=== PATIENT | male | born 1945 | race Caucasian/White ===

== ENCOUNTER 2020-09-27 07:30 | Day surgery (SDC) | payer MEDICARE, OTHER ==
[~2020-09-27] VITALS: Ht 185.4 cm; Wt 97.7 kg
[~2020-09-27 07:30] MED LIST: ALKA-SELTZER H1 EACH PO; ASCO500 PO; CHOL10002; CRANBERRY250 MG PO; FAMO20 PO; HYDPAM50 PO; LORA10ER PO; MULTI VITAMIN1 EACH PO; PRED10 PO; RANI150 PO; SULTRIDS PO
[2020-09-27] MEDS ORDERED: TUMS500 MG (08:28)
[2020-09-27] MEDS ORDERED: FISH OIL 1,2001 EAC7 (08:29)
[2020-09-27] MEDS ORDERED: OMEP20ER (08:29)
[2020-09-27] MEDS ORDERED: CLON.1 (08:29)
[2020-09-27] MEDS ORDERED: FURO40 (08:29)
[2020-09-27] MEDS ORDERED: KLOR-CON 1010 ME2 (08:29)
[2020-09-27] MEDS ORDERED: YONSA125 MG (08:30)
[2020-09-27] MEDS ORDERED: VENL150ER (08:30)
[2020-09-27] MEDS ORDERED: RAYOS (08:30)
== END 2020-09-27 10:53 | disposition home or self-care (01) ==
LOC: ORSCSDS 07:30
PROVIDERS: Internal Medicine Gastroenterology
PROC: 3E0H8KZ Introduction of Other Diagnostic Substance into Lower GI, Via Natural or Artificial Opening Endoscopic (ICD-10-PCS; principal; 2020-09-27 09:00)
PROC: 0DBH8ZX Excision of Cecum, Via Natural or Artificial Opening Endoscopic, Diagnostic (ICD-10-PCS; principal; 2020-09-27 09:00)
PROC: 0DBK8ZX Excision of Ascending Colon, Via Natural or Artificial Opening Endoscopic, Diagnostic (ICD-10-PCS; principal; 2020-09-27 09:00)
DX: Z12.11 Encounter for screening for malignant neoplasm of colon (principal); Z86.010 Personal history of colon polyps; D12.2 Benign neoplasm of ascending colon; D12.0 Benign neoplasm of cecum; K57.30 Diverticulosis of large intestine without perforation or abscess without bleeding; Z87.891 Personal history of nicotine dependence; G47.33 Obstructive sleep apnea (adult) (pediatric); Z79.899 Other long term (current) drug therapy; Z85.46 Personal history of malignant neoplasm of prostate; Z85.51 Personal history of malignant neoplasm of bladder
CPT/HCPCS: 82947; 88305; J0330; J0461; J2405; J2704; J7120

== ENCOUNTER 2020-11-22 11:40 | Day surgery (SDC) | payer MEDICARE, OTHER ==
[~2020-11-22] VITALS: Ht 185.4 cm; Wt 99.0 kg
[~2020-11-22 11:40] MED LIST changes: +CLON.1; +FISH OIL 1,2001 EAC7; +FURO40; +KLOR-CON 1010 ME2; +OMEP20ER; +RAYOS; +TUMS500 MG; +VENL150ER; +YONSA125 MG
== END 2020-11-22 14:50 | disposition home or self-care (01) ==
LOC: ORSCSDS 11:40
DX: Z12.11 Encounter for screening for malignant neoplasm of colon (principal); D12.0 Benign neoplasm of cecum; D12.3 Benign neoplasm of transverse colon; Z86.010 Personal history of colon polyps; E11.9 Type 2 diabetes mellitus without complications; G47.33 Obstructive sleep apnea (adult) (pediatric); Z79.84 Long term (current) use of oral hypoglycemic drugs; Z79.899 Other long term (current) drug therapy; Z87.891 Personal history of nicotine dependence
CPT/HCPCS: 82947; 88305; J2704; J7120

== ENCOUNTER 2023-03-14 20:00 | Emergency (ER) | payer MEDICARE, OTHER ==
[~2023-03-14] VITALS: Ht 177.8 cm; Wt 104.3 kg
[2023-03-14 20:18] VITALS: BP 140/79
== END 2023-03-14 22:56 | disposition home or self-care (01) ==
LOC: ER 20:00
DX: S61.411A Laceration without foreign body of right hand, initial encounter (principal); W26.8XXA Contact with other sharp object(s), not elsewhere classified, initial encounter; Y99.0 Civilian activity done for income or pay; Z23 Encounter for immunization; Z79.899 Other long term (current) drug therapy; Z88.8 Allergy status to other drugs, medicaments and biological substances; Z79.52 Long term (current) use of systemic steroids
CPT/HCPCS: 12002; 90471; 90714; 90715; 99282-25

== ENCOUNTER 2023-03-28 13:43 | Day surgery (SDC) | payer MEDICARE, OTHER ==
[~2023-03-28] VITALS: Ht 177.8 cm; Wt 105.0 kg
[~2023-03-28 13:43] MED LIST changes: +ALBU90OI; +ASPI325; +ATOR20; +BENADRYL25 MG; +Baclofen20 MG; +CALCIUM 500 MG1 EAC9; +LUPRON DEPOT30 M1; +METF500; -OMEP20ER; +OMEP20ER PO; +OXYC10ER; +PREG150; +PROLIA60 MG/1 ML; +VITAMIN E180 MG; +ZYTIGA500 MG
[2023-03-28] MEDS ORDERED: VENL75ER (14:15)
[2023-03-28] MEDS ORDERED: OXYC10ER (14:23)
[2023-03-28] MEDS ORDERED: TOCO1000 (14:24)
[2023-03-28] MEDS ORDERED: Mobic15 MG (14:24)
[2023-03-28] MEDS ORDERED: ELIGARD22.5 MG (14:25)
--- NOTE | 2023-03-28 16:42 | NUR ---
03/28/23 1642 Carole Moon EMPTIED PATIENTS UROSTOMY BAG DURING PROCEDURE. 200ML REMOVED.
[2023-03-28 17:35] VITALS: BP 105/64
--- NOTE | 2023-03-28 17:37 | NUR ---
03/28/23 1737 Carole Moon IV, DC'Mirela, CATHETER WNL
== END 2023-03-28 17:37 | disposition home or self-care (01) ==
LOC: ORSCSDS 13:43
PROVIDERS: Internal Medicine Gastroenterology
PROC: 0DBL8ZX Excision of Transverse Colon, Via Natural or Artificial Opening Endoscopic, Diagnostic (ICD-10-PCS; principal; 2023-03-28 15:15)
DX: Z12.11 Encounter for screening for malignant neoplasm of colon (principal); Z86.010 Personal history of colon polyps; K63.5 Polyp of colon; G47.33 Obstructive sleep apnea (adult) (pediatric); E11.9 Type 2 diabetes mellitus without complications; Z79.899 Other long term (current) drug therapy; Z79.82 Long term (current) use of aspirin
CPT/HCPCS: 82947; 88305; J0461; J1980; J2001; J2405; J2704; J7120; Q9968

== ENCOUNTER → 2023-12-10 | Outpatient (CLI) | payer MEDICARE, OTHER ==
[~2023-12-10] MED LIST changes: +ELIGARD22.5 MG; +Mobic15 MG; +TOCO1000; +VENL75ER
== END ==
LOC: LAB 09:27 → LAB SHORT 09:27
DX: R31.0 Gross hematuria (principal)
CPT/HCPCS: 87077; 87086; 87186

== ENCOUNTER → 2024-10-20 | Outpatient (CLI) | payer MEDICARE, OTHER ==
[2024-10-20 14:59] LABS: Prostate Specific Antigen 0.013 ng/mL (0.000-4.000)
== END | disposition home or self-care (01) ==
LOC: LAB SHORT 11:14 → LAB 11:14
PROVIDERS: Family Medicine
DX: C61 Malignant neoplasm of prostate (principal)
CPT/HCPCS: 84153

== ENCOUNTER 2024-11-20 20:41 | Observation (INO) | payer MEDICARE, OTHER ==
[~2024-11-20] VITALS: Ht 177.8 cm; Wt 96.7 kg
[~2024-11-20 20:41] MED LIST changes: -ATOR20; +ATOR20 PO; -BENADRYL25 MG; +BENADRYL25 MG PO; -Baclofen20 MG; +Baclofen20 MG PO; -CLON.1; +CLON.1 PO; -FURO40; +FURO40 PO; -KLOR-CON 1010 ME2; -METF500; +METF500 PO; -Mobic15 MG; +Mobic15 MG PO; +POTA10T PO; -PREG150; +PREG150 PO; -RAYOS; +RAYOS PO; -VENL75ER; +VENL75ER PO; -YONSA125 MG; +YONSA125 MG PO
[2024-11-20] MEDS ORDERED: Amaryl2 MG PO (21:02)
[2024-11-20] MEDS ORDERED: Calcium Carbon500 MG PO (21:03)
[2024-11-20] MEDS ORDERED: CRANBERRY215 MG PO (21:04)
[2024-11-20 21:17] LABS: BASOPHILS ABSOLUTE AUTO 0.02 K/mm3 (0.00-0.23); BASOPHILS PERCENT AUTO 0 % (0-2); EOSINOPHILS ABSOLUTE AUTO 0.02 K/mm3 (0.00-0.68); EOSINOPHILS PERCENT AUTO 0 % (0-6); Hematocrit 30.8 % (37.0-53.0); Hemoglobin 10.0 g/dL (13.5-17.5); IMMATURE GRAN ABSOLUTE AUTO 0.05 K/mm3 (0.00-0.10); IMMATURE GRAN PERCENT AUTO 1 % (0-1); LYMPHOCYTES ABSOLUTE AUTO 0.87 K/mm3 (0.84-5.20); LYMPHOCYTES PERCENT AUTO 8 % (21-46); MONOCYTES ABSOLUTE AUTO 0.80 K/mm3 (0.16-1.47); MONOCYTES PERCENT AUTO 8 % (4-13); Mean Corpuscular HGB Conc 32.5 g/dL (31.5-36.5); Mean Corpuscular Volume 92 fL (80-100); NEUTROPHILS ABSOLUTE AUTO 8.87 K/mm3 (1.96-9.15); NEUTROPHILS PERCENT AUTO 83 % (41-73); NRBC ABSOLUTE 0.00 K/mm3 (0.00-0.02); NRBC Auto 0.0 /100 WBC (0.0-0.2); Platelet Count 287 K/mm3 (150-400); RDW Coefficient Variation 16.2 % (11.7-14.2); RDW Standard Deviation 55.3 fL (35.1-46.3)
[2024-11-20 21:25] LABS: Alanine Aminotransfer (ALT/SGP 14.0 U/L (12-78); Albumin, Blood 2.2 g/dL (3.4-5.0); Albumin/Globulin Ratio 0.5 (0.8-1.8); Anion Gap 9.0 mmol/L (3-11); Aspartate Aminotrans (AST/SGOT 42.0 U/L (12-37); Bilirubin, Total 0.7 mg/dL (0.1-1.0); Blood Urea Nitrogen 21.0 mg/dL (8-24); CO2, Blood 24.0 mmol/L (21-32); Calcium, Blood 6.7 mg/dL (8.5-10.1); Chloride, Blood 106.0 mmol/L (98-108); Creatinine, Blood 1.05 mg/dL (0.60-1.20); Globulin, Blood 4.2 g/dL (2.2-4.0); Glucose, Blood 225.0 mg/dL (70-99); Potassium, Blood 3.8 mmol/L (3.5-5.5); Sodium, Blood 135.0 mmol/L (136-145); Total Protein, Blood 6.4 g/dL (6.4-8.2)
[2024-11-20] MEDS ORDERED: DiphenhydrAMINE HCl 50 MG/ML 1ML Vial IV ONE (22:05)
[2024-11-20] MEDS ORDERED: Dexamethasone Sod Phos 10 MG/ML 1ML VIAL IV ONE (22:05)
[2024-11-20] MEDS ORDERED: Pantoprazole Sodium 40 MG Injection IV ONE (23:10)
[2024-11-21] MEDS ORDERED: Ondansetron HCl 2 MG / ML 2ML Vial IV PRN (01:10)
[2024-11-21] MEDS ORDERED: Ketorolac Tromethamine 15mg Vial IV PRN (02:10)
[2024-11-21 03:29] VITALS: BP 116/75
[2024-11-21] MEDS ORDERED: VITAMIN D350 MC3 PO (04:28)
[2024-11-21] MEDS ORDERED: OXYC5 PO (04:37)
--- NOTE | 2024-11-21 05:52 | NUR ---
PT ADMITTED TO ROOM 338 AT 0300 FROM ED WITH A PARTIAL SBO. PT NPO WITH IVF INITIATED. PT DENIES ABDOMINAL PAIN OR NAUSEA. ABD IS SOFTLY DISTENDED WITH HYPOACTIVE BOWEL SOUNDS. PT WITH UROSTOMY TO R ABD DRAINING YELLOW URINE WITH SOME SEDIMENT. PT WITH A HISTORY OF ESBL- CONTACT ISOLATION. SMALL STAGE 2 PRESSURE ULCER NOTED TO COCCYX UPON SKIN CHECK. PT'S STATES THAT THIS IS A HEALING SORE. DR. HUNTER NOTIFED, PICTURE TAKEN AND PLACED IN CHART, AND MEPELEX APPLIED. CALL LIGHT WITHIN REACH.
[2024-11-21 06:14] LABS: BASOPHILS ABSOLUTE AUTO 0.00 K/mm3 (0.00-0.23); BASOPHILS PERCENT AUTO 0 % (0-2); EOSINOPHILS ABSOLUTE AUTO 0.00 K/mm3 (0.00-0.68); EOSINOPHILS PERCENT AUTO 0 % (0-6); Hematocrit 29.1 % (37.0-53.0); Hemoglobin 9.7 g/dL (13.5-17.5); IMMATURE GRAN ABSOLUTE AUTO 0.03 K/mm3 (0.00-0.10); IMMATURE GRAN PERCENT AUTO 0 % (0-1); LYMPHOCYTES ABSOLUTE AUTO 0.22 K/mm3 (0.84-5.20); LYMPHOCYTES PERCENT AUTO 2 % (21-46); MONOCYTES ABSOLUTE AUTO 0.17 K/mm3 (0.16-1.47); MONOCYTES PERCENT AUTO 2 % (4-13); Mean Corpuscular HGB Conc 33.3 g/dL (31.5-36.5); Mean Corpuscular Volume 91 fL (80-100); NEUTROPHILS ABSOLUTE AUTO 9.44 K/mm3 (1.96-9.15); NEUTROPHILS PERCENT AUTO 96 % (41-73); NRBC ABSOLUTE 0.00 K/mm3 (0.00-0.02); NRBC Auto 0.0 /100 WBC (0.0-0.2); Platelet Count 271 K/mm3 (150-400); RDW Coefficient Variation 15.9 % (11.7-14.2); RDW Standard Deviation 53.1 fL (35.1-46.3)
[2024-11-21] MEDS ORDERED: Insulin Regular 100 UNIT/ML 10ML Vial SC SCH ×2 (06:40→11:30)
[2024-11-21 06:58] LABS: Alanine Aminotransfer (ALT/SGP 13.0 U/L (12-78); Albumin, Blood 2.1 g/dL (3.4-5.0); Albumin/Globulin Ratio 0.5 (0.8-1.8); Anion Gap 11.0 mmol/L (3-11); Aspartate Aminotrans (AST/SGOT 33.0 U/L (12-37); Bilirubin, Total 0.6 mg/dL (0.1-1.0); Blood Urea Nitrogen 21.0 mg/dL (8-24); CO2, Blood 20.0 mmol/L (21-32); Calcium, Blood 6.8 mg/dL (8.5-10.1); Chloride, Blood 108.0 mmol/L (98-108); Creatinine, Blood 0.84 mg/dL (0.60-1.20); Globulin, Blood 4.1 g/dL (2.2-4.0); Glucose, Blood 208.0 mg/dL (70-99); Potassium, Blood 3.7 mmol/L (3.5-5.5); Sodium, Blood 135.0 mmol/L (136-145); Total Protein, Blood 6.2 g/dL (6.4-8.2)
[2024-11-21 07:42] VITALS: BP 118/67
[2024-11-21] MEDS ORDERED: Polyethylene Glycol 3350 17 gm PO SCH (09:45)
--- NOTE | 2024-11-21 15:29 | NUR ---
GAVE REPORT TO AGNIESZKA WILLIAMSON. CLAY TO ASSUME CARE OF PT.
[2024-11-21] MEDS ORDERED: OMEGA-3-FISH O1 EAC3 PO (16:22)
[2024-11-21] MEDS ORDERED: Colace100 MG PO (16:22)
[2024-11-21] MEDS ORDERED: MIRALAX17 GM PO (16:23)
--- NOTE | 2024-11-21 16:55 | NUR ---
1530 ASSUMED CARE OF PT; RESTING QUIETLY AWAKE WATCHING TV WITH IN CHAIR AT BS. PT NPO UNTIL DR RIOJAS ABLE TO DISCUSS PLAN OF CARE WITH DR WALKER. DR RIOJAS SOON PUT IN D/C ORDERS. PT TO F/U WITH PCP AND ONCOLOGY SCHEDULED. PT AND DECLINED TO HAVE BOWLE CARE FAXED THEY ALREADY HAVE THEM AT HOME. D/C INSTRUCTIONS REVIEWED WITH PT AND ; VERBALIZED UNDERSTANDING. PT ASSISTED OUT TO FAMILY CAR VIA W/C WITH AT SIDE. PT WEARING ALL BELONGINGS.
== END 2024-11-21 17:54 | disposition home or self-care (01) ==
LOC: ER 20:41 → MEDS 20:42
PROVIDERS: Emergency Medicine; ADMIT Student in an Organized Health Care Education/Training Program
DX: K56.600 Partial intestinal obstruction, unspecified as to cause (principal); K59.00 Constipation, unspecified; C61 Malignant neoplasm of prostate; C67.9 Malignant neoplasm of bladder, unspecified; C78.7 Secondary malignant neoplasm of liver and intrahepatic bile duct; E11.9 Type 2 diabetes mellitus without complications; Z79.1 Long term (current) use of non-steroidal anti-inflammatories (NSAID); Z79.84 Long term (current) use of oral hypoglycemic drugs; Z91.09 Other allergy status, other than to drugs and biological substances
CPT/HCPCS: 36415; 74177; 80053; 82947; 83690; 83735; 85025; 93005; 93010; 96374-59; 96375; 99285-25; G0378; J1100; J1200; J1815; J1885; J2470; J7120; Q9967

== ENCOUNTER 2024-11-23 11:45 | Inpatient (IN) | payer MEDICARE, OTHER ==
[~2024-11-23] VITALS: Ht 177.8 cm; Wt 91.2 kg
[~2024-11-23 11:45] MED LIST changes: +Amaryl2 MG PO; +CRANBERRY215 MG PO; +Calcium Carbon500 MG PO; +Colace100 MG PO; +MIRALAX17 GM PO; +OMEGA-3-FISH O1 EAC3 PO; +OXYC5 PO; +VITAMIN D350 MC3 PO
[2024-11-23] MEDS ORDERED: Piperacillin/Tazobactam Sod 4.5 GM in NS 100 ML IV ONE (12:00)
[2024-11-23] MEDS ORDERED: NS 1,000 ML IV SCH (12:05)
[2024-11-23 12:36] LABS: Alanine Aminotransfer (ALT/SGP 16.0 U/L (12-78); Albumin, Blood 2.0 g/dL (3.4-5.0); Albumin/Globulin Ratio 0.5 (0.8-1.8); Anion Gap 10.0 mmol/L (3-11); Aspartate Aminotrans (AST/SGOT 26.0 U/L (12-37); Bilirubin, Direct 0.1 mg/dL (0.0-0.3); Bilirubin, Indirect 0.2 mg/dL (0.1-0.7); Bilirubin, Total 0.3 mg/dL (0.1-1.0); Blood Urea Nitrogen 30.0 mg/dL (8-24); CO2, Blood 19.0 mmol/L (21-32); Calcium, Blood 6.4 mg/dL (8.5-10.1); Chloride, Blood 108.0 mmol/L (98-108); Creatinine, Blood 1.21 mg/dL (0.60-1.20); Globulin, Blood 3.9 g/dL (2.2-4.0); Glucose, Blood 140.0 mg/dL (70-99); Magnesium, Blood 1.6 mg/dL (1.6-2.4); Potassium, Blood 4.0 mmol/L (3.5-5.5); Sodium, Blood 133.0 mmol/L (136-145); Total Protein, Blood 5.9 g/dL (6.4-8.2)
[2024-11-23 12:50] LABS: Prothrombin Time Results 12.4 Sec (9.7-11.5)
[2024-11-23 12:53] LABS: Phosphorus, Blood 0.9 mg/dL (2.5-4.9)
[2024-11-23 12:55] LABS: Hematocrit 29.5 % (37.0-53.0); Hemoglobin 9.7 g/dL (13.5-17.5); Mean Corpuscular HGB Conc 32.9 g/dL (31.5-36.5); Mean Corpuscular Volume 89 fL (80-100); NRBC ABSOLUTE 0.00 K/mm3 (0.00-0.02); NRBC Auto 0.0 /100 WBC (0.0-0.2); Platelet Count 309 K/mm3 (150-400); RDW Coefficient Variation 15.9 % (11.7-14.2); RDW Standard Deviation 52.6 fL (35.1-46.3)
[2024-11-23] MEDS ORDERED: DiphenhydrAMINE HCl 50 MG/ML 1ML Vial IV ONE (13:10)
[2024-11-23 13:29] LABS: BAND PERCENT MAN 41 % (0-8); BASOPHILS ABSOLUTE MAN 0.00 K/mm3 (0.00-0.23); BASOPHILS PERCENT MAN 0 % (0-2); EOSINOPHILS ABSOLUTE MAN 0.06 K/mm3 (0.00-0.68); EOSINOPHILS PERCENT MAN 2 % (0-6); LYMPHOCYTES ABSOLUTE MAN 0.21 K/mm3 (0.84-5.20); LYMPHOCYTES PERCENT MAN 7 % (21-46); METAMYELOCYTE ABSOLUTE MAN 0.09 K/mm3 (0.00-0.00); METAMYELOCYTE PERCENT MAN 3 % (0-0); MONOCYTES ABSOLUTE MAN 0.03 K/mm3 (0.16-1.47); MONOCYTES PERCENT MAN 1 % (4-13); NEUTROPHILS ABSOLUTE MAN 2.72 K/mm3 (1.96-9.15); SEG NEUTROPHILS PERCENT MAN 46 % (41-73)
[2024-11-23] MEDS ORDERED: SODIUM PHOSPHATE IV SCH (13:50)
[2024-11-23] MEDS ORDERED: Ketorolac Tromethamine 15mg Vial IV ONE (14:15)
[2024-11-23 14:17] LABS: pH Blood Venous 7.25 (7.34-7.37)
[2024-11-23] MEDS ORDERED: Vancomycin (Pharmacy Consult) IV SCH (15:40)
[2024-11-23] MEDS ORDERED: Morphine Sulfate 4 MG/1 ML Injection IV PRN (15:45)
[2024-11-23] MEDS ORDERED: Ondansetron HCl 2 MG / ML 2ML Vial IV PRN (15:50)
[2024-11-23 16:06] LABS: pH Blood Venous 7.33 (7.34-7.37)
[2024-11-23 17:30] LABS: Anion Gap 11.0 mmol/L (3-11); Blood Urea Nitrogen 34.0 mg/dL (8-24); CO2, Blood 18.0 mmol/L (21-32); Calcium, Blood 6.9 mg/dL (8.5-10.1); Chloride, Blood 109.0 mmol/L (98-108); Creatinine, Blood 1.44 mg/dL (0.60-1.20); Glucose, Blood 132.0 mg/dL (70-99); Potassium, Blood 3.5 mmol/L (3.5-5.5); Sodium, Blood 134.0 mmol/L (136-145)
[2024-11-23] MEDS ORDERED: Piperacillin/Tazobactam Sod 4.5 GM in NS 100 ML IV SCH (18:00)
[2024-11-23] MEDS ORDERED: Insulin Human Lispro 100 Units/ML 3ML Syringe SC SCH (18:00)
[2024-11-23 18:20] VITALS: BP 105/62
[2024-11-23] MEDS ORDERED: Sodium Phosphate 15 MM in Dextrose 5% 500 ML IV ONE (19:00)
--- NOTE | 2024-11-23 19:29 | NUR ---
Admit note. Pt admitted from the ED to PCU1. Pt and family were oriented to the room and call light system. Pt arrived on BiPAP. Pt remains NPO for bowel rest/ respiratory effort. CBG checks Q6 hour Nasal swabs sent for PCR and MRSA, Sputum sample need to be collected. Urostomy remains patent. Clear yellow urine. Pt is able to make needs known. Call light is within reach.
[2024-11-23 20:30] VITALS: BP 101/61
[2024-11-23 21:00] VITALS: BP 100/65
[2024-11-23] MEDS ORDERED: Lactobacil 2-S.Thermo-Bifido 1 1 Cap PO SCH (21:00)
[2024-11-23 22:00] VITALS: BP 107/81
[2024-11-23 23:00] VITALS: BP 110/66
[2024-11-23 23:37] LABS: Influenza A/2009-H1 Not Detected (NOT DETECT); SARS-Cov-2 (COVID-19), BioFire Not Detected (NOT DETECT)
[2024-11-24] VITALS (8 sets, daily range): BP systolic 92–117; BP diastolic 62–74
--- NOTE | 2024-11-24 01:45 | NUR ---
HOME HERE TO RECEIVING CLERK PT. ALL BELONGINGS AND NECESSARY PAPERWORK WITH PT AND HOME PERSONNEL AT TIME OF DISCHARGE.
[2024-11-24 04:44] LABS: Hematocrit 24.6 % (37.0-53.0); Hemoglobin 8.3 g/dL (13.5-17.5); Mean Corpuscular HGB Conc 33.7 g/dL (31.5-36.5); Mean Corpuscular Volume 89 fL (80-100); NRBC ABSOLUTE 0.00 K/mm3 (0.00-0.02); NRBC Auto 0.0 /100 WBC (0.0-0.2); Platelet Count 270 K/mm3 (150-400); RDW Coefficient Variation 16.3 % (11.7-14.2); RDW Standard Deviation 53.4 fL (35.1-46.3)
[2024-11-24 05:22] LABS: Alanine Aminotransfer (ALT/SGP 12 U/L (12-78); Albumin, Blood 1.7 g/dL (3.4-5.0); Albumin/Globulin Ratio 0.4 (0.8-1.8); Anion Gap 12 mmol/L (3-11); Aspartate Aminotrans (AST/SGOT 21 U/L (12-37); Bilirubin, Total 0.3 mg/dL (0.1-1.0); Blood Urea Nitrogen 30 mg/dL (8-24); CO2, Blood 20 mmol/L (21-32); Calcium, Blood 5.9 mg/dL (8.5-10.1); Chloride, Blood 108 mmol/L (98-108); Creatinine, Blood 1.31 mg/dL (0.60-1.20); Globulin, Blood 3.8 g/dL (2.2-4.0); Glucose, Blood 240 mg/dL (70-99); Potassium, Blood 4.0 mmol/L (3.5-5.5); Sodium, Blood 136 mmol/L (136-145); Total Protein, Blood 5.5 g/dL (6.4-8.2); Vancomycin, Random 14.6 ug/mL
[2024-11-24 05:33] LABS: Phosphorus, Blood 3.2 mg/dL (2.5-4.9)
[2024-11-24 05:38] LABS: BAND PERCENT MAN 41 % (0-8); BASOPHILS ABSOLUTE MAN 0.06 K/mm3 (0.00-0.23); BASOPHILS PERCENT MAN 1 % (0-2); EOSINOPHILS ABSOLUTE MAN 0.00 K/mm3 (0.00-0.68); EOSINOPHILS PERCENT MAN 0 % (0-6); LYMPHOCYTES ABSOLUTE MAN 0.13 K/mm3 (0.84-5.20); LYMPHOCYTES PERCENT MAN 2 % (21-46); MONOCYTES ABSOLUTE MAN 0.41 K/mm3 (0.16-1.47); MONOCYTES PERCENT MAN 6 % (4-13); MYELOCYTE ABSOLUTE MAN 0.13 K/mm3 (0.00-0.00); MYELOCYTE PERCENT MAN 2 % (0-0); NEUTROPHILS ABSOLUTE MAN 6.11 K/mm3 (1.96-9.15); SEG NEUTROPHILS PERCENT MAN 48 % (41-73)
--- NOTE | 2024-11-24 06:23 | NUR ---
PT STABLE THROUGHOUT SHIFT. PT ON BIPAP THROUGHOUT NIGHT. PT NO LONGER SOMNOLENT AND IS AWAKE SPONTANEOUSLY THIS AM. PT ABLE TO MAKE NEEDS KNOWN AND USES CALL LIGHT APPROPRIATELY. PT CONTINUES TO HAVE SOFT BP AND IS ASYMPTOMATIC. PT TOLERATING IV FLUIDS AND IV ABX WELL. PT REMAINS NPO PER ORDER AT THIS TIME. PT OTHER VITAL SIGNS HAVE BEEN WNL. PT DID HAVE ONE LOOSE INCONTINENT BM. UROSTOMY CONTINUES TO DRAIN WELL AND PT HAS HAD GOOD URINARY OUTPUT.
[2024-11-24] MEDS ORDERED: Potassium Chloride 10 Meq Tablet SA PO SCH (09:00)
[2024-11-24] MEDS ORDERED: Enoxaparin 40 MG/0.4 ML SYR SC SCH (09:00)
[2024-11-24 10:31] LABS: Acinetobacter baumannii DNA Not Detected copy/mL (NOT DETECT); CTX-M Resistance Gene Not Detected; Enterobacter cloacae DNA Not Detected copy/mL (NOT DETECT); Escherichia coli DNA Detected Bin >=10^7 copy/mL (NOT DETECT); Haemophilus influenzae DNA Not Detected copy/mL (NOT DETECT); IMP Resistance Gene Not Detected; KPC Resistance Gene Not Detected; Klebsiella aerogenes DNA Not Detected copy/mL (NOT DETECT); Klebsiella oxytoca DNA Not Detected copy/mL (NOT DETECT); Klebsiella pneumoniae DNA Not Detected copy/mL (NOT DETECT); Moraxella catarrhalis DNA Not Detected copy/mL (NOT DETECT); Proteus sp DNA Not Detected copy/mL (NOT DETECT); Pseudomonas aeruginosa DNA Not Detected copy/mL (NOT DETECT); Serratia marcescens DNA Not Detected copy/mL (NOT DETECT); Staphylococcus aureus DNA Detected Bin 10^4 copy/mL (NOT DETECT); Streptococcus agalactiae DNA Not Detected copy/mL (NOT DETECT); Streptococcus pneumoniae DNA Not Detected copy/mL (NOT DETECT); Streptococcus pyogenes DNA Not Detected copy/mL (NOT DETECT)
[2024-11-24 10:32] LABS: Chlamydia pneumonia Not Detected (NOT DETECT); Human Coronavirus RNA Not Detected (NOT DETECT); Human Metapneumovirus RNA Not Detected (NOT DETECT); Influenza virus A RNA Not Detected (NOT DETECT); Influenza virus B RNA Not Detected (NOT DETECT); NDM Resistance Gene Not Detected; OXA-48-like Resistance Gene Not Detected; Respiratory syncytial Vir RNA Not Detected (NOT DETECT); Rhinovirus+Enterovirus RNA Not Detected (NOT DETECT); VIM Resistance Gene Not Detected; mecA/C and MREJ Resist Gene Not Detected
[2024-11-24] MEDS ORDERED: Polyethylene Glycol 3350 17 gm PO PRN (10:35)
[2024-11-24] MEDS ORDERED: Multivitamins 1 Tab PO SCH (11:00)
[2024-11-24] MEDS ORDERED: ABIRATERONE PO SCH (13:00)
--- NOTE | 2024-11-24 14:57 | NUR ---
THIS RN CALLED DR. RIOJAS WITH SPUTUM CULTURE RESULTS. NO NEW ORDERS.
[2024-11-24] MEDS ORDERED: Insulin Human Lispro 100 Units/ML 3ML Syringe SC SCH (16:30)
--- NOTE | 2024-11-24 17:33 | NUR ---
PALLIATIVE CARE VISIT: CALLED HEMAL AND SET UP A GOC MEETING AT 0900 ON 11/25/24. NOTIFIED PRIMARY RN OF MEETING.
--- NOTE | 2024-11-24 17:36 | NUR ---
END OF SHIFT SUMMARY THE PT IS A&OX4, 1P SBA, AND MAKES HIS NEEDS KNOWN. HAS BEEN AT BEDSIDE AND UPDATED ON CARE. AT START OF THE SHIFT THE PT WAS ON THE BIPAP, BUT WAS BEING SWITCHED TO 3LNC. HE HAS SINCE BEEN SWITCHED TO RA W/O ANY SOB, AND SP02 >93%. SPUTUM SAMPLE COLLECTED AND SENT TO LAB. PT PLACED ON DROPLET PERCAUTIONS D/T RESULTS. ON TELE HE WAS SR, BUT THE TELE HAS SINCE BEEN D/C'D. BP HAS BEEN STABLE T/O THE DAY. DR. RIOJAS DID D/C THE PT'S CLONODINE THIS MORNING. THE MEDICATION REC WAS RECONCILLED AND DR. RIOJAS MADE AWARE. HE HAS A UROSTOMY THAT IS DRAINING VIA GRAVITY INTO A SUCTION CANISTER. NO BOWEL MOVEMENT THIS SHIFT. SPEECH THERAPY AND PHYSICAL THERAPY WORKED WITH THE PT TODAY. NO ACUTE EVENTS. THE PT IS MEDICAL STATUS AND IS TRANSFERING TO [facility].
[2024-11-25] MEDS ORDERED: NS 250 ML IV PRN (01:50)
[2024-11-25 02:40] VITALS: BP 121/74
[2024-11-25] MEDS ORDERED: Prochlorperazine Edisylate 10 mg Vial IV PRN (03:20)
--- NOTE | 2024-11-25 05:00 | NUR ---
SHIFT SUMMARY PATIENT A/O X3 THROUGHOUT SHIFT, VITAL SIGNS REMAINED STABLE. AT APPROX [address] HUNTER TO REPORT INCREASE IN ABDOMINAL DISTENTION AND NAUSEA, ALSO REPORTED THAT PATIENT STATES THAT HE HAS NOT HAD A BOWEL MOVEMENT SINCE BEFORE BEING ADMITTED. DR HUNTER ORDERED COMPAZINE AND THIS RN GAVE MEDICATION PER EMAR. MIRALAX GIVEN PRN. PATIENT RESTING. OXYGEN SATURATION ABOVE 90% ON ROOM AIR. UROSTOMY DRAINING CLEAR YELLOW URINE INTO SUCTION CONTAINER. WILL CONTINUE TO MONITOR AND REPORT TO ONCOMING RN.
[2024-11-25 06:25] VITALS: BP 123/79
[2024-11-25 06:26] LABS: Hematocrit 32.2 % (37.0-53.0); Hemoglobin 10.7 g/dL (13.5-17.5); Mean Corpuscular HGB Conc 33.2 g/dL (31.5-36.5); Mean Corpuscular Volume 89 fL (80-100); NRBC ABSOLUTE 0.02 K/mm3 (0.00-0.02); NRBC Auto 0.2 /100 WBC (0.0-0.2); Platelet Count 382 K/mm3 (150-400); RDW Coefficient Variation 16.4 % (11.7-14.2); RDW Standard Deviation 54.0 fL (35.1-46.3)
--- NOTE | 2024-11-25 06:26 | NUR ---
CALL PLACED TO DR HUNTER TO REPORT CONTINUED DISCOMFORT WITH ABDOMINAL DISTENTION, AND PULSE FLUNCTUATING FROM 40'S-90'S. PROVIDER PLACED ORDERS FOR TELE, ABDOMINAL CT, AND LABS. THIS RN NOTIFIED BOTH CHARGE NURSES. TELE PLACED ON PATIENT. BACK UP WORKER REPORTS BIGEMINY AT 92. VITAL SIGNS OBTAINED AND PROVIDER NOTIFIED WITH TELE REPORT. NO CHEST PAIN REPORTED. WILL CONTINUE TO MONITOR.
[2024-11-25 06:41] LABS: Anion Gap 12.0 mmol/L (3-11); Blood Urea Nitrogen 29.0 mg/dL (8-24); CO2, Blood 21.0 mmol/L (21-32); Calcium, Blood 6.5 mg/dL (8.5-10.1); Chloride, Blood 106.0 mmol/L (98-108); Creatinine, Blood 1.18 mg/dL (0.60-1.20); Glucose, Blood 165.0 mg/dL (70-99); Magnesium, Blood 1.9 mg/dL (1.6-2.4); Potassium, Blood 3.1 mmol/L (3.5-5.5); Sodium, Blood 136.0 mmol/L (136-145)
[2024-11-25 07:47] VITALS: BP 118/78
[2024-11-25] MEDS ORDERED: Vitamin E 400 Intn'l Units Cap PO SCH (09:00)
[2024-11-25] MEDS ORDERED: Misc. Tablet PO SCH (09:00)
[2024-11-25] MEDS ORDERED: Cranberry Extract 250MG W/30 MG Vitamin C Tab PO SCH (09:00)
[2024-11-25] MEDS ORDERED: Cholecalciferol 1000 Unit Tablet (=25MCG) PO SCH (09:00)
[2024-11-25] MEDS ORDERED: ABIRATERONE PO SCH (09:00)
[2024-11-25] MEDS ORDERED: Phenol/Sodium Phenolate Oral Spray 180 ML MM PRN (09:45)
--- NOTE | 2024-11-25 11:35 | NUR ---
PALLIATIVE CARE VISIT: MET WITH PT AND HEMAL IN THE ROOM TO DISCUSS GOC THIS MORNING AT 9 AM. STATES UNTIL THEY MEET WITH THE ONCOLOGIST TO FIND OUT WHAT TREATMENT OPTIONS ARE AVAILABLE TO TREAT THE CANCER, THEY DO NOT WANT TO MAKE ANY DECISIONS YET. HEMAL REPORTS JULIOCESAR WAS REFERRED TO DR. MAYO FOR THE LIVER LESIONS BUT HE IS ON VACATION UNTIL 12/01. THEY ARE AGREEABLE TO MEETING WITH DR. ZAVALETA TO DISCUSS TREATMENT OPTIONS. SPOKE TO DR. RIOJAS AND HE IS AGREEABLE TO PLACING CONSULT FOR DR. ZAVALETA TO COME IN AND CONSULT WITH PT. ALSO DISCUSSED SYMPTOM MANAGEMENT WITH PT. SURGEON ARRIVED DURING THIS MEETING. PT C/O 09/30 ABD PAIN. ABD IS SEVERELY DISTENDED. PT STATES HE ATE LUNCH AND DINNER YESTERDAY. HE DID EAT BREAKFAST. PT REPORTS BURPING BUT HAS NOT PASSED GAS. PLAN IS TO PLACE NG TUBE AND MAKE NPO AT THIS TIME. SURGEON TO PLACE ORDERS.
[2024-11-25 15:54] VITALS: BP 134/67
--- NOTE | 2024-11-25 17:06 | NUR ---
ASSUMPTION OF CARE: THIS RN ASSUMED CARE OF PATIENT FROM AGNIESZKA JANSEN AFTER TRANSFER FROM ROOM 350. AWAKE DURING TIME OF TRANSFER. BREATHING EVEN AND UNLABORED c 2LPM/NC. NG TUBE TO SUCTION. REFRIGERATING MACHINE OPERATOR NOTIFIED THAT PT TRANSFERRING; REVIEW OF STRIP SHOWS BIGEMINY c P-WAVE DIFFICULT TO IDENTIFY AND APPEARED TO BE BORDERLINE A-FIB c HR IN 90s. BED IN LOWEST POSITION. CALL LIGHT WITHIN REACH. ACUTE NEEDS MET. AT BEDSIDE.
--- NOTE | 2024-11-25 17:24 | NUR ---
CALL TO DR RIOJAS: GARY TO HOLD P.O. MEDICATIONS TONIGHT. GARY TO CHANGE AC/HS TO Q6H D/T PT NPO STATUS. NOTIFIED OF CHANGE IN HEART RHYTHM AND RATE; HE WILL PLACE ORDER FOR IV PUSH METOPROLOL.
--- NOTE | 2024-11-25 17:28 | NUR ---
TRANSFER OF CARE CLIENT AOX3. MEDICATION COMPLIANT. REMAINS ON IV ABT. UROSOTMY IN PLACE AND DRAINING TO GRAVITY. CLIENT'S WILL BRING IN SUPPLIES TO CHANGE LOOSE ATTACHMENT POINT TOMORROW. NG TUBE PLACED TO DECOMPRESS ABDOMEN. A TOTAL OF 2800ML HAD DRAINED THUS FAR. CLIENT IS ON TELE. AT THE BEGINNING OF THE SHIFT, WAS SHOWING BIGEMINY. PRIOR TO TRANSFERRING CLIENT, CALLED INTERNET RETAILER AND THE STRIP WAS SHOWING SINUS TACH @ 105, WITH FREQUENT PVC'S AND BBB. CLIENT REMAINS ON DROPLET PRECAUTIONS FOR STAPH AND E. COLI IN SPUTUM.
[2024-11-25] MEDS ORDERED: MEDROL PO (17:37)
--- NOTE | 2024-11-25 17:53 | NUR ---
CALL FROM BUSINESS INSURANCE AGENT: PT HAD 9-BEAT RUN OF V-TACH. DR RIOJAS NOTIFIED: T.O. FOR STAT MAG LEVEL AND NOTIFY HIM OF RESULT.
[2024-11-25] MEDS ORDERED: Insulin Human Lispro 100 Units/ML 3ML Syringe SC SCH (18:00)
--- NOTE | 2024-11-25 19:37 | NUR ---
END OF SHIFT SUMMARY: A&Ox4. PLEASANT AND COOPERATIVE WITH CARE. CALLS APPROPRIATELY AND IS ABLE TO ADVOCATE NEEDS EFFECTIVELY. UROSTOMY DRAINING TO GRAVITY. NGT TO SUCTION. NPO. GLUCOSE CHECKS CHANGED TO Q6H D/T NPO STATUS. HAS NOT AMBULATED TODAY. NO C/O PAIN OR DISCOMFORT. DR PRICE TO BEDSIDE FOR CONSULT. NO CHANGES AT THIS TIME. TELE HAS BEEN IRRATIC WHOING BIGEM, TRIGEM AND A-FIB c HR < 100. ORDER FOR STAT MAG LEVEL. RESULTS PENDING. AT BEDSIDE. BED IN LOWEST POSITION, CALL LIGHT WITHIN REACH, ALL NEEDS MET. REPORT TO ONCOMING NURSE.
[2024-11-25 20:05] VITALS: BP 118/67
[2024-11-26] MEDS ORDERED: NS 100 ML IV ONE (02:07)
[2024-11-26] MEDS ORDERED: Morphine Sulfate 4 MG/1 ML Injection IV PRN (02:45)
[2024-11-26] MEDS ORDERED: DiphenhydrAMINE HCl 50 MG/ML 1ML Vial IV ONE (02:45)
--- NOTE | 2024-11-26 02:45 | NUR ---
Benadryl IV Now & Morphine orders Patient c/o pain in legs and difficulty sleeping. Requesting pain meds and sleep aid. Takes benadryl at home nightly for sleep, however, patient strictly NPO at this time. Called Dr. Baker and obtained a T.O. to to give 25mg IV benadryl once and change current morphine order to 2-4mg IV morphine q4h prn for severe pain.
[2024-11-26 02:51] VITALS: BP 101/86
--- NOTE | 2024-11-26 05:25 | NUR ---
Shift Summary AOx4. Pleasant. Cooperative. Patient receiving LR @ 100mls/hour, his second of three bags. NG tube output is green bilious with some coffee ground material. Urostomy draining yellow urine to gravity and is patent. Medicated for leg pain and sleep, both were effective. Calling for needs appropriately. Bed in lowest position, call light in reach.
[2024-11-26 07:36] LABS: Creatinine, Blood 1.23 mg/dL (0.60-1.20); Vancomycin, Trough 17.9 ug/mL (5.0-10.0)
[2024-11-26 07:43] LABS: Anion Gap 9.0 mmol/L (3-11); Blood Urea Nitrogen 30.0 mg/dL (8-24); CO2, Blood 25.0 mmol/L (21-32); Calcium, Blood 6.3 mg/dL (8.5-10.1); Chloride, Blood 109.0 mmol/L (98-108); Creatinine, Blood 1.24 mg/dL (0.60-1.20); Glucose, Blood 166.0 mg/dL (70-99); Potassium, Blood 2.9 mmol/L (3.5-5.5); Sodium, Blood 140.0 mmol/L (136-145)
[2024-11-26] MEDS ORDERED: Potassium Chl 20MEQ/Water100ML 100 ML IV SCH (08:00)
[2024-11-26 08:16] VITALS: BP 127/66
[2024-11-26] MEDS ORDERED: Piperacillin/Tazobactam Sod 4.5 GM in NS 100 ML IV SCH (10:00)
[2024-11-26 11:34] VITALS: BP 126/68
[2024-11-26] MEDS ORDERED: Calcium Chloride 10% 2,000 MG in NS 100 ML IV ONE (16:25)
[2024-11-26 16:37] VITALS: BP 128/58
--- NOTE | 2024-11-26 18:06 | NUR ---
End of shift summary: Patient is alert and oriented x3; pleasant and cooperative with care. Patient denies SOB, CP, N/V/D this shift and NG tube in place draining dark fluid per suction. Patient with complaint of pain and medicated per EMAR; all other PO medications held per NPO status. Patient with urostomy change today and tolerated well. No acute changes this shift. Patient utilizing call light appropriately; call light within reach, bed in lowest postion. Will continue to monitor until next shift nurse arrives and report is given.
[2024-11-26 19:29] VITALS: BP 120/73
[2024-11-26 23:31] VITALS: BP 135/71
[2024-11-27 03:33] VITALS: BP 131/69
--- NOTE | 2024-11-27 04:49 | NUR ---
PT A&O X4, VS WNL, CONTINUES TO BE NPO FOR SBO, NG IN LT NARE TO LIS, UROSOMY TO CANISTER WITH GOOD OUTPUT. PAIN IN ABDOMEN TX'D WITH MORPHINE IVP X1 THIS SHIFT. CBG WNL NO COVERAGE NEEDED. O2 @ 1.5L/NC. IVPB POTASIUM REPLACEMENT ADMINISTERED, AND CONTINUES TO BE ON IVABX. PLAN TO D/C TO HOME WITH HH.
[2024-11-27 06:03] LABS: Anion Gap 12.0 mmol/L (3-11); Blood Urea Nitrogen 22.0 mg/dL (8-24); CO2, Blood 23.0 mmol/L (21-32); Calcium, Blood 7.5 mg/dL (8.5-10.1); Chloride, Blood 114.0 mmol/L (98-108); Creatinine, Blood 1.06 mg/dL (0.60-1.20); Glucose, Blood 154.0 mg/dL (70-99); Magnesium, Blood 2.2 mg/dL (1.6-2.4); Potassium, Blood 3.9 mmol/L (3.5-5.5); Sodium, Blood 145.0 mmol/L (136-145)
[2024-11-27 08:28] VITALS: BP 149/69
[2024-11-27 12:04] VITALS: BP 153/87
[2024-11-27 16:16] VITALS: BP 137/83
--- NOTE | 2024-11-27 18:16 | NUR ---
SHIFT SUMMARY: A&OX4 THROUGHOUT SHIFT. PLEASANT WITH CARE. PT REMAINS NPO AT THIS TIME. DR PRICE CONTACTED THIS SHIFT BY BREAK NURSE ABOUT POTENTIAL SMALL BOWEL FOLLOW THROUGH. PLAN IS FOR DR PRICE TO CONTACT STAFF ABOUT PLAN FOR PROCEDURE DUE TO ALLERGY TO IODINE AND TO PLAN FOR TOMORROW. PT SEEN BY PHYSICAL THERAPY TODAY AND IS REPORRTED TO BE A MINIMAL ASSIST. PT DENIES CHEST PAIN AND/OR DISCOMFT. 02 SATS >90% ON ROOM AIR. LYING IN BED AT THIS TIME. LOCKED IN THE LOWEST POSITION.
[2024-11-27 20:41] VITALS: BP 117/74
[2024-11-27 20:43] VITALS: BP 117/74
[2024-11-28] VITALS (8 sets, daily range): BP systolic 122–142; BP diastolic 68–90
--- NOTE | 2024-11-28 05:09 | NUR ---
FLOORWALKER SUMMARY PT A/OX4 WITH SOME FORGETFULNESS. PT ALLOWED ICE CHIPS T/O THE NIGHT BUT OTHERWISE NPO. MEDS HELD PER NPO ORDER AND SBO. PT HAS HAD LITTLE OUTPUT FROM NG TUBE THIS SIFT. PT IS TOLERATING ICE CHIPS AND DENIES ABD PAIN. PT DOES ENDORSE PAIN TO BLE. PT REPORTS N & T HX WITH FREQUENT SHARP/SHOOTING PAINS. NOTED PT'S LE TO HAVE MOTTLED APPEARANCE AND CAP REFILL SLUGISH. PT PEDAL PULSES PALPABLE. (CHARGE NURSE OBSERVED PT PER THIS RN REQUEST). LIMBS ARE COOL TO TOUCH. PT STATES CIRCULATION AND NUMBNESS HAS BEEN ONGOING FOR YEARS. SCD'S APPLIED. PT HAS UROSTOMY DRAINING TO GRAVITY. NG TUBE IS SET TO LOW CONTINUOUS SUCTION PER ORDER. PT ON TELE W/O EVENTS T/O THE SHIFT. PT IS ABLE TO MAKE NEEDS KNOWN. CALL LIGHT ACCESSIBLE. PT IS MODERATE TO HEAVY CARE. ASSISTED PT WITH REPOSITIONING AT LEAST EVERY TWO HOURS. REGULAR ROUNDING COMPLETE T/O THE SHIFT. BLOOD SUGARS OBTAINED Q6 AND INSULIN ADMINISTERED PER MAR/SLIDING SCALE. IV ABOX GIVEN PER MAR. REENFORCED EDUCATION ON PLAN FOR SMALL BOWEL FOLLOW THROUGH AND NEED FOR PT TO BE NPO. CARE WILL CONTINUE UNTIL REPORT GIVEN TO ONCOMING NURSE.
[2024-11-28 06:14] LABS: Anion Gap 13.0 mmol/L (3-11); Blood Urea Nitrogen 18.0 mg/dL (8-24); CO2, Blood 19.0 mmol/L (21-32); Calcium, Blood 7.1 mg/dL (8.5-10.1); Chloride, Blood 115.0 mmol/L (98-108); Creatinine, Blood 0.95 mg/dL (0.60-1.20); Glucose, Blood 140.0 mg/dL (70-99); Magnesium, Blood 2.0 mg/dL (1.6-2.4); Potassium, Blood 3.4 mmol/L (3.5-5.5); Sodium, Blood 144.0 mmol/L (136-145)
--- NOTE | 2024-11-28 06:31 | NUR ---
INFECTION CONTROLLED INFORMED ISOLATION NOT NEEDED PT POS FOR MSSA IN NARES. NOT MRSA--NO ISO NEEDED.
[2024-11-28] MEDS ORDERED: DiphenhydrAMINE HCl 50 MG/ML 1ML Vial IV PRN (11:10)
--- NOTE | 2024-11-28 19:33 | NUR ---
SHIFT SUMMARY CLIENT AOX3. MEDICATION COMPLIANT. RECEIVED 1 BAG OF IV POTASSIUM. DUE TO LENGTH OF RUN TIME ON THE POTASSIUM AND IMAGING STUDIES. CLIENT MISSED 10:00 DOSE OF ZOSYN. CLIENT SEEN DR PRICE TO DISCUSS POSSIBILITY OF SURGICAL INTERVENTION OF BOWEL OBSTRUCTION, IF IMAGING STUDY SHOWS WARRENTED.BED IS IN LOW POSITION AND CALLLIGHT IS WITHIN REACH
[2024-11-29] VITALS (28 sets, daily range): BP systolic 107–136; BP diastolic 59–87
[2024-11-29 06:07] LABS: Anion Gap 13.0 mmol/L (3-11); Blood Urea Nitrogen 27.0 mg/dL (8-24); CO2, Blood 20.0 mmol/L (21-32); Calcium, Blood 7.2 mg/dL (8.5-10.1); Chloride, Blood 123.0 mmol/L (98-108); Creatinine, Blood 1.18 mg/dL (0.60-1.20); Glucose, Blood 160.0 mg/dL (70-99); Potassium, Blood 3.6 mmol/L (3.5-5.5); Sodium, Blood 152.0 mmol/L (136-145)
--- NOTE | 2024-11-29 06:30 | NUR ---
PT A&Ox3-4 AND PLEASANT. NG TUBE REMAINS IN PLACE AT CONTINIOUS LOW SUCTION AND 1650ML OF GREEN FLUID WAS EMPTIED FROM CANISTER T/O THE NIGHT. PT ALSO ABLE TO HAVE 3 SMALL-MEDIUM LOOSE STOOL USING THE BED DAVIS. PT MEDICATED FOR PAIN PER EMAR. NEW POWER GLIDE PLACED IN LORNA D/T OLD PG INFILTRATING. IV ABX ADMINISTERED PER EMAR. PT ON 3L OF OXYGEN DURING THE NIGHT. Q6 BG MONITORING AND INSULINE GEVEN PER ORDER. VSS. BED IN LOWEST POSITION AND CALL LIGHT IN REACH.
--- NOTE | 2024-11-29 09:03 | NUR ---
Pt laying in bed awake watching tv, at bedside, pt is npo with ng to lis, lungs are clear in upper mcdonald, dim in bases, resp even and unlabored, currently on 3.5 liters 02 via n/c, no cough noted, hrr, tele in place running sr with first degree and bbb, trace edema noted to b/l le, feet are cool to touch, ppp faint, cap refill<3 sec, vs stable, afebrile, power glide to debora site is clear and patent, btx4, abd soft nontender, has urostomy to rlq site is c/d/i, carlos, weak, perry, call light in reach. will be going to surg today, held lovenox, and po meds.
[2024-11-29] MEDS ORDERED: NS 500 ML IV SCH (10:00)
--- NOTE | 2024-11-29 10:19 | NUR ---
pt left for surgery via shemar, report given to Moose on surgical floor, all belongings taken to room 211.
[2024-11-29] MEDS ORDERED: Ropivacaine 0.5% HCL/PF 5 MG/ML 30ML Vial ONE (10:32)
[2024-11-29] MEDS ORDERED: SuccINYLCHOLINE Chloride 100 MG/5 ML 5MLSYR ONE ×2 (12:17→13:15)
[2024-11-29] MEDS ORDERED: Rocuronium Bromide 10 MG/ML 5ML Injection IV ONE ×2 (12:17→13:15)
[2024-11-29] MEDS ORDERED: Albumin (Human) 12.5gm/250ml 500 ML IV ONE (12:30)
[2024-11-29] MEDS ORDERED: Phenylephrine HCl 100 MCG/ML-NS 10MLSYR (1MG/10ML) ONE (13:14)
[2024-11-29] MEDS ORDERED: FentaNYL Citrate 50 MCG/ML 2 ML Injection ONE ×2 (13:15→15:13)
[2024-11-29] MEDS ORDERED: Sugammadex Sodium 200 MG/2ML SDV (100 MG/ML) ONE (13:59)
[2024-11-29] MEDS ORDERED: Ondansetron HCl 2 MG / ML 2ML Vial IV PRN (15:15)
[2024-11-29] MEDS ORDERED: HYDROmorphone HCl/Pf 1MG SYR IV PRN (15:15)
[2024-11-29] MEDS ORDERED: FentaNYL Citrate 50 MCG/ML 2 ML Injection IV PRN ×3 (15:20→15:35)
[2024-11-29] MEDS ORDERED: Albuterol 2.5 MG/3 ML VIAL INH PRN (15:20)
[2024-11-29] MEDS ORDERED: Ipratropium/Albuterol SulF 2.5-0.5MG/3 ML Amp ONE (15:21)
[2024-11-29] MEDS ORDERED: HYDROmorphone HCl/Pf 1MG SYR ONE (15:48)
--- NOTE | 2024-11-29 16:27 | NUR ---
ICU ARRIVAL: Pt arrived in ICU 12 from PACU with RT and RN. BIPAP in place at 70% FiO2. Pt alert to voice and following commands.
[2024-11-29 17:21] LABS: Anion Gap 10.0 mmol/L (3-11); Blood Urea Nitrogen 31.0 mg/dL (8-24); CO2, Blood 19.0 mmol/L (21-32); Calcium, Blood 6.7 mg/dL (8.5-10.1); Chloride, Blood 127.0 mmol/L (98-108); Creatinine, Blood 1.28 mg/dL (0.60-1.20); Glucose, Blood 245.0 mg/dL (70-99); Potassium, Blood 3.6 mmol/L (3.5-5.5); Sodium, Blood 152.0 mmol/L (136-145)
--- NOTE | 2024-11-29 19:09 | NUR ---
SHIFT SUMMARY: BIPAP was weaned to 6L NC and left radial arterial line was discontinued without complication. Pt is alert to voice and oriented x 4. His was updated at bedside. See EMar for pain managemnt. Pt educated on abdominal splinting with coughing. Urostomy draining clear yellow urine to catheter bag via gravity. GAYE in place with good suction. Small, pensil eraser sized, red drainage on midline abdominal dressing observed during bed-side shift report.
--- NOTE | 2024-11-29 20:05 | NUR ---
ASSUMPTION OF CARE/ASSESSMENT: ASSUMED CARE OF PT AT 1900; BEDSIDE SHIFT REPORT RECIEVED FROM ROB AARON. PT IN BED, POST-OP DAY ONE WITH A MIDLINE INCISION AND GAYE DRESSING IN PLACE; SMALL, DIME SIZED AMOUNT OF BLOOD NOTED AT BOTTOM OF DRESSING. PT REPORTS 8/10 ABD PAIN; PRN FENTANYL GIVEN PER EMAR. PT A&O X 4, PLEASANT AND COOPERATIVE WITH CARE. PT CURRENTLY ON NC @ 6 LPM, SPO2 90<, LUNGS CLEAR WITH DIM BASES AND DENIES SOB. PT SR, HR 80'S, AND SBP 120'S; PT DENIES CHEST PAIN/PRESSURE AT THIS TIME. PT HAD NGT TO R. NARE THAT IS TO LIS; GREEN OUTPUT NOTED. 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 PPP X 4, BLE COOL TO TOUCH. PT HAS PG TO LORNA THAT IS INFUSING LR @ 125 MLS/HR AND KCL PIGGYBACK. LWR PIV IS PATENT AND SALINE LOCKED. BED LOWERED, CALL LIGHT IN REACH.
[2024-11-30] VITALS (32 sets, daily range): BP systolic 76–139; BP diastolic 52–97
[2024-11-30 03:45] LABS: Hematocrit 30.2 % (37.0-53.0); Hemoglobin 9.6 g/dL (13.5-17.5); Mean Corpuscular HGB Conc 31.8 g/dL (31.5-36.5); Mean Corpuscular Volume 93 fL (80-100); NRBC ABSOLUTE 0.00 K/mm3 (0.00-0.02); NRBC Auto 0.0 /100 WBC (0.0-0.2); Platelet Count 496 K/mm3 (150-400); RDW Coefficient Variation 17.5 % (11.7-14.2); RDW Standard Deviation 59.4 fL (35.1-46.3)
[2024-11-30 04:07] LABS: Anion Gap 8.0 mmol/L (3-11); Blood Urea Nitrogen 28.0 mg/dL (8-24); CO2, Blood 22.0 mmol/L (21-32); Calcium, Blood 6.6 mg/dL (8.5-10.1); Chloride, Blood 129.0 mmol/L (98-108); Creatinine, Blood 1.2 mg/dL (0.60-1.20); Glucose, Blood 187.0 mg/dL (70-99); Magnesium, Blood 2.5 mg/dL (1.6-2.4); Potassium, Blood 3.9 mmol/L (3.5-5.5); Sodium, Blood 155.0 mmol/L (136-145)
--- NOTE | 2024-11-30 06:04 | NUR ---
SHIFT SUMMARY: NO ACUTE CHANGES THROUGHOUT THE NIGHT. PT CONTINUES TO HAVE MOD-SEVERED ABD PAIN; PRN FENTANYL AND MORPHINE GIVEN PER EMAR WITH GOOD EFFECT. PT HAD 750 MLS OF GREEN OUTPUT FROM NGT. GOOD OUTPUT FROM UROSTOMY. MIDLINE INCISION IN PLACE WITH GAYE DRESSING; SMALL AMOUNT OF BLEEDING ON DRESSING ON THE BOTTOM, HAS BEEN OUTLINED. PT EDUCATED ON SPLINTING ABD WHEN COUGHING OR RESPOSITIONING. FLUIDS SWITCHED TO D5W FOR HIGH SODIUM AND CHLORIDE; D5W @ 125 MLS/HR. BED LOWERED, CALL LIGHT IN REACH.
--- NOTE | 2024-11-30 06:13 | NUR ---
PROVIDER CONTACT: CALLED DR. ARRIAGA REGARDING IONIZED CALCIUM AT 0.89. PROVIDER AWARE AND STATED THAT HE WILL PUT ORDER IN.
[2024-11-30] MEDS ORDERED: Piperacillin/Tazobactam Sod 4.5 GM in NS 100 ML IV SCH (08:00)
--- NOTE | 2024-11-30 08:26 | NUR ---
AM NOTE... ASSUMED CARE OF PT AT 0700, PT IS A&Ox4. PT IS S/P EX LAP ON 11/29 PT CURRENTLY DENIES ANY PAIN. MID LINE GAYE DRESSING IS STABLE WITH GOOD SUCTION, SMALL AREA OF DRY EXUDATE NOTED AND MARKED BY NOC SHIFT RN NO CHANGES. ABD IS SOFT AND TENDER TO PALPATION, BT ARE PRESENT AND HYPOACTIVE, PT STATES HE FEELS LIKE HE HAS PASSED A "SMALL AMOUNT OF GAS" EARLIER. UROSTOMY IS STABLE AND DRAINING CLEAR YELLOW URINE TO GRAVITY. PT IS IN SR w/OCC PVCs INT HE 70'S-80'S. BP IS STABLE AT 110/56 MAP 72. PT HAS 2+ EDEMA TO HIS BLE AND DEPENDENT TRACE EDEMA TO HIS BUE. HE WAS ON 4L NC WITH O2 SATS>95% THIS WAS TITRATED DOWN TO 2L NC. L/S CLEAR IN THE UPPER LOBES DIM IN THE LOWER. PLANS TO GET THE PT UP IN A CHAIR THIS SHIFT.
[2024-11-30] MEDS ORDERED: Enoxaparin 40 MG/0.4 ML SYR SC SCH (09:00)
--- NOTE | 2024-11-30 12:06 | NUR ---
PROVIDER AT THE BEDSIDE/PT UPDATE.... 1150: AT THE BEDSIDE TO ASSESS THE PT, PER DR. PRICE PT CAN HAVE ICE CHIPS LONG HE DOES NOT HAVE ANY NAUSEA. NG TUBE TO STAY TO LIS AT THIS TIME. PT GOT UP TO THE CHAIR WITH 2P ASSIST WITH A FWW. PT TOLERATED THE TRANSFER WELL.
--- NOTE | 2024-11-30 17:38 | NUR ---
SHIFT SUMMARY.... NO ACUTE NEGATIVE CHANGES NOTED THIS SHIFT. PT'S VS HAVE BEEN STABLE. PT WAS UP IN THE RECLINER CHAIR 2-3HRS THIS SHIFT WITH 2P ASSIST WITH FWW. ABD BINDER WAS PLACED FOR PT'S COMFORT. PT'S NG TUBE HAS BEEN TO LIS WITH 1850MLS OF YELLOW/GREEN BILE OUTPUT. PT'S NEPHROSTOMY IS PATENT AND DRAINING TO GRAVITY. THE PT'S HAS BEEN AT THE BEDSIDE T/O THIS SHIFT. PT'S BT CONTINUE TO BE HYPOACTIVE PT HAS NOT HAD A BM THIS SHIFT. PT HAS TOLERATED ICE CHIPS WELL.
--- NOTE | 2024-11-30 18:29 | NUR ---
TRANSFER TO SURGICAL FLOOR REPORT RECEIVED FROM LINE SERVICER. PATIENT ARRIVED TO SURGICAL FLOOR ROOM 229 AT 1823. PATIENT'S ACCOMPANYING. PATIENT SLID OVER TO SURGICAL BED WITH ASSISTANCE OF STAFF. VITALS STABLE. PATIENT ON 2L NC WITH SPO2 >90%. LUNG SOUNDS DIMINISHED T/O. NG TUBE IN PLACE AND HOOKED UP TO SUCTION PER ORDER. LIGHT GREEN OUTPUT IN TUBING. UROSTOMY WITH DRAINAGE BAG ATTATCHED. ABDOMINAL BINDER IN PLACE. DENIES ANY CURRENT PAIN. REQUESTING ICE CHIPS. WILL REPORT TO WIC SITE COORDINATOR RN.
[2024-12-01] MEDS ORDERED: Piperacillin/Tazobactam Sod 4.5 GM in NS 100 ML IV SCH
[2024-12-01 03:19] VITALS: BP 98/62
[2024-12-01 05:13] LABS: Anion Gap 8.0 mmol/L (3-11); Blood Urea Nitrogen 18.0 mg/dL (8-24); CO2, Blood 25.0 mmol/L (21-32); Calcium, Blood 6.3 mg/dL (8.5-10.1); Chloride, Blood 123.0 mmol/L (98-108); Creatinine, Blood 1.22 mg/dL (0.60-1.20); Glucose, Blood 227.0 mg/dL (70-99); Potassium, Blood 3.0 mmol/L (3.5-5.5); Sodium, Blood 153.0 mmol/L (136-145)
--- NOTE | 2024-12-01 06:42 | NUR ---
NOC SUMMARY- PT PAIN MANAGED WELL. DRESSING C/D/I AND COMPRESSED. PT NG DRAINING GREEN FLUID. PT DENIES NAUSEA. UROSTOMY DRAINING TO GRAVITY. NO NEW ISSUES NOTED. CALL LIGHT IN REACH.
[2024-12-01 07:15] VITALS: BP 125/68
[2024-12-01] MEDS ORDERED: Potassium Chl 20MEQ/Water100ML 100 ML IV SCH (07:55)
--- NOTE | 2024-12-01 08:07 | NUR ---
DR RIOJAS TO BEDSIDE TO ASSESS PT
--- NOTE | 2024-12-01 10:09 | NUR ---
DR PRICE TO BEDSIDE TO ROUND ON PT
[2024-12-01] MEDS ORDERED: TAZOBACTAM SOD IV SCH (12:00)
[2024-12-01] MEDS ORDERED: PIPERACILLIN IV SCH (12:00)
[2024-12-01] MEDS ORDERED: DEXTROSE 5% IV SCH (12:00)
[2024-12-01 16:13] VITALS: BP 122/64
[2024-12-01 17:13] LABS: Anion Gap 8.0 mmol/L (3-11); Blood Urea Nitrogen 17.0 mg/dL (8-24); CO2, Blood 27.0 mmol/L (21-32); Calcium, Blood 6.5 mg/dL (8.5-10.1); Chloride, Blood 117.0 mmol/L (98-108); Creatinine, Blood 1.19 mg/dL (0.60-1.20); Glucose, Blood 259.0 mg/dL (70-99); Potassium, Blood 3.2 mmol/L (3.5-5.5); Sodium, Blood 149.0 mmol/L (136-145)
--- NOTE | 2024-12-01 19:14 | NUR ---
SHIFT SUMMARY POD 2 BOWEL RESECTION c SANIYA. NO ACUTE CHANGES THIS SHIFT. VSS, 2L O2 VIA NC PRN WHILE ASLEEP. NPO STATUS c SIPS & CHIPS. NG TUBE TO LIS c GREEN OUTPUT. PT REPORTS MIN PASSING FLATUS, NO BM. IS & ORAL SUCTION @ BEDSIDE R/T INCREASED SECRETIONS. IV FLUIDS/ABX INFUSING PER EMAR. PT REPORTS INCREASED ABD PAIN, MEDICATED PER EMAR. BASELINE UROSTOMY DRAINING YELLOW URINE TO GRAVITY. MIDLINE GAYE c MIN SHAOWING, OTHERWISE C/D/I. SAT IN CHAIR TODAY, 1 PERSON ASSIST c FWW. @ BESIDE THROUGHOUT MOST OF DAY - HELPFUL & INVOLVED c CARE. CALL LIGHT IN REACH, BED IN LOWEST POSITION, REPORT GIVEN TO KAY AARON.
[2024-12-01 20:39] VITALS: BP 115/56
[2024-12-02 04:13] VITALS: BP 106/51
--- NOTE | 2024-12-02 04:14 | NUR ---
NOC SUMMARY- PT PAIN MANAGED WELL. PT NGT DRAINING GREEN FLUID. PT DRESSING IS COMPRESSED WITH SOME SHADOWING. PT REPOSITIONED TOLERATED. PT UROSTOMY DRAINING TO GRAVITY. PT RESTING COMFORTABLY. CALL LIGHT IN REACH.
[2024-12-02 05:13] LABS: Magnesium, Blood 2.1 mg/dL (1.6-2.4)
[2024-12-02 05:17] LABS: Anion Gap 6.0 mmol/L (3-11); Blood Urea Nitrogen 17.0 mg/dL (8-24); CO2, Blood 31.0 mmol/L (21-32); Calcium, Blood 6.0 mg/dL (8.5-10.1); Chloride, Blood 108.0 mmol/L (98-108); Creatinine, Blood 1.31 mg/dL (0.60-1.20); Glucose, Blood 284.0 mg/dL (70-99); Potassium, Blood 2.4 mmol/L (3.5-5.5); Sodium, Blood 143.0 mmol/L (136-145)
[2024-12-02] MEDS ORDERED: Potassium Chl 20MEQ/Water100ML 100 ML IV SCH ×2 (05:35→14:30)
[2024-12-02 07:31] VITALS: BP 97/67
--- NOTE | 2024-12-02 08:55 | NUR ---
DR RIOJAS TO BEDSIDE CAD DESIGN ENGINEER CALLED THIS RN TO REPORT PROLONGED QT INTERVAL ON TELE. ECG PERFORMED, CONFIRMING PROLONGATION. VSS, PT ASYMPTOMATIC. MD ORDERES REPEAT POTASSIUM S/P INFUSION COMPLETION.
--- NOTE | 2024-12-02 10:48 | NUR ---
SPEECH THERAPY CANCEL CONSULT AT THIS TIME. PT REMAINS NPO c LARGE AMOUNTS OF NG OUTPUT. SPEECH THERAPY RELAYS TO BE RE-CONSULTED WHEN PT IS ALLOWED PO INTAKE.
[2024-12-02 11:45] VITALS: BP 108/76
--- NOTE | 2024-12-02 13:01 | NUR ---
DR PRICE TO BEDSIDE NG TUBE c GREEN OUTPUT. PLAN TO CONTINUE NPO STATUS c IV NUTRITION.
[2024-12-02] MEDS ORDERED: Mag Sulfate 1 GM/D5% 100ML 100 ML IV STA (14:27)
[2024-12-02 16:12] VITALS: BP 116/61
--- NOTE | 2024-12-02 16:19 | NUR ---
SHIFT SUMMARY POD 3 BOWEL RESECTION c SANIYA. NO ACUTE CHANGES THIS SHIFT. VSS, 2L O2 VIA NC PRN WHILE ASLEEP. NPO STATUS c SIPS & CHIPS. NG TUBE TO LIS c GREEN OUTPUT. PT REPORTS MIN PASSING FLATUS, NO BM. IS & ORAL SUCTION @ BEDSIDE. IV FLUIDS/ABX INFUSING PER EMAR. MAG/POTASSIUM REPLACEMENT TODAY VIA IV. PT REPORTS INCREASED ABD PAIN, MEDICATED PER EMAR. BASELINE UROSTOMY DRAINING YELLOW URINE TO GRAVITY. MIDLINE GAYE c MIN SHAOWING, OTHERWISE C/D/I. 1 PERSON ASSIST c FWW, MOBILITY & AMBULATION ENCOURAGED. @ BESIDE THROUGHOUT MOST OF DAY - HELPFUL & INVOLVED c CARE. CALL LIGHT IN REACH, BED IN LOWEST POSITION, REPORT GIVEN TO KAY AARON.
[2024-12-02 20:52] VITALS: BP 113/68
--- NOTE | 2024-12-03 04:20 | NUR ---
NOC SUMMARY- PT PAIN MANAGED WELL. PT REPOSITIONED TOLERATED. PT GAYE COMPRESSED AND C/D/I. PT NGT DRAINING GREEN FLUID. PT CALL APPROPIATELY. PT HAS BEEN ABLE TO REST COMFORTABLY. NO NEW ISSUES NOTED. CALL LIGHT IN REACH.
[2024-12-03 06:02] VITALS: BP 102/71
[2024-12-03 06:42] LABS: Magnesium, Blood 2.3 mg/dL (1.6-2.4)
[2024-12-03 06:47] LABS: Anion Gap 8.0 mmol/L (3-11); Blood Urea Nitrogen 21.0 mg/dL (8-24); CO2, Blood 28.0 mmol/L (21-32); Calcium, Blood 5.6 mg/dL (8.5-10.1); Chloride, Blood 109.0 mmol/L (98-108); Creatinine, Blood 1.68 mg/dL (0.60-1.20); Glucose, Blood 217.0 mg/dL (70-99); Potassium, Blood 3.2 mmol/L (3.5-5.5); Sodium, Blood 142.0 mmol/L (136-145)
[2024-12-03 07:28] VITALS: BP 111/73
[2024-12-03] MEDS ORDERED: Potassium Chl 20MEQ/Water100ML 100 ML IV STA (08:33)
[2024-12-03] MEDS ORDERED: CALCIUM GLUC IN NACL, ISO-OSM 50 ML IV ONE (08:35)
[2024-12-03] MEDS ORDERED: [UNRECOGNIZED DRUG - MIXTURE] IV SCH (10:55)
[2024-12-03] MEDS ORDERED: [UNRECOGNIZED DRUG - OTHER] IV SCH (10:55)
[2024-12-03] MEDS ORDERED: CALCIUM IV SCH (10:55)
[2024-12-03] MEDS ORDERED: LYTES IV SCH (10:55)
[2024-12-03] MEDS ORDERED: THIAMINE HCL IV SCH (10:55)
[2024-12-03] MEDS ORDERED: D5W IV SCH (10:55)
[2024-12-03] MEDS ORDERED: Fat Emulsion 20 % IV 250 ML IV SCH (11:00)
[2024-12-03 12:08] VITALS: BP 119/74
[2024-12-03 16:10] VITALS: BP 112/75
--- NOTE | 2024-12-03 18:16 | NUR ---
SHIFT SUMMARY PATIENT IS POD 4 COLLECTOMY WITH PICCO TO MIDLINE SLIGHT SHADOWING. COMPRESSED AND INTACT. PATIENT HAS UROSTOMY, CHANGED APPLIANCE TODAY APROPRIATE OUTPUT. LARGE LIQUID BOWEL MOVEMENT TODAY, NG TUBE CLAMPPED AND DIET ADVANCED TO CL. DENIES NAUSEA. PASSING GAS. ON 2L NC WHILE SLEEPING, DESATS INTERMITTENTLY. USES SX FOR SECRETIONS. THICK YELLOW IN COLOR. PATIENT UP TO BSC 2 ASSIST. WEAK AND SLIGHT DIZZINESS. USES CALL LIGHT. VSS.
[2024-12-03] MEDS ORDERED: Insulin Glargine-Yfgn 100 Unit/mL 3 ML SYR SC ONE (18:45)
[2024-12-03 19:40] VITALS: BP 110/67
[2024-12-04 00:11] VITALS: BP 101/66
--- NOTE | 2024-12-04 00:36 | NUR ---
0030- PT UROSTOMY REINFORCED WITH TAPE. PLEASE ASK FAMILY TO LEAVE EXTRA UROSTOMY BAGS.
[2024-12-04 04:09] VITALS: BP 118/77
--- NOTE | 2024-12-04 04:30 | NUR ---
NOC SUMMARY- PAIN MANAGED WELL. PT NGT IS CLAMPED. PT DENIES ANY NAUSEA. PT UROSTOMY DRAINING TO GRAVITY. PT DRESSING IS C/D/I. PT REPOSITIONED TOLERATED. PT RESTING COMFORTABLY. CALL LIGHT IN REACH.
[2024-12-04 05:08] LABS: Magnesium, Blood 2.1 mg/dL (1.6-2.4)
[2024-12-04 05:22] LABS: Anion Gap 7.0 mmol/L (3-11); Blood Urea Nitrogen 22.0 mg/dL (8-24); CO2, Blood 29.0 mmol/L (21-32); Calcium, Blood 5.4 mg/dL (8.5-10.1); Chloride, Blood 105.0 mmol/L (98-108); Creatinine, Blood 1.33 mg/dL (0.60-1.20); Glucose, Blood 235.0 mg/dL (70-99); Phosphorus, Blood 2.1 mg/dL (2.5-4.9); Potassium, Blood 2.9 mmol/L (3.5-5.5); Sodium, Blood 138.0 mmol/L (136-145)
[2024-12-04] MEDS ORDERED: Potassium Chl 20MEQ/Water100ML 100 ML IV SCH (05:50)
[2024-12-04 07:33] VITALS: BP 113/70
[2024-12-04] MEDS ORDERED: Insulin Glargine-Yfgn 100 Unit/mL 3 ML SYR SC SCH (09:00)
[2024-12-04] MEDS ORDERED: Piperacillin/Tazobactam Sod 4.5 GM in NS 100 ML IV SCH (12:50)
[2024-12-04 14:44] VITALS: BP 106/73
[2024-12-04] MEDS ORDERED: Insulin Human Lispro 100 Units/ML 3ML Syringe SC SCH ×2 (16:30)
--- NOTE | 2024-12-04 16:55 | NUR ---
SHIFT SUMMARY POD 5 PT UP TO CHAIR FOR MOST OF THE SHIFT WITH SBA. TOLERATED WELL, PT ENCOURAGED TO AMBULATE. TOLERATING DIET SO FAR WITH NO NAUSEA. MIDLINE PICCO REMAINS COMPRESSED. NGT REMOVED THIS AM. PT TOLERATED PROCEDURE WELL. CLINIMIX CONTINUES TO INFUSE PER ORDERS.
[2024-12-04 18:40] VITALS: BP 125/81
[2024-12-04 23:56] VITALS: BP 116/69
[2024-12-05 03:49] VITALS: BP 116/74
--- NOTE | 2024-12-05 05:19 | NUR ---
NOC SUMMARY- PT HAS BEEN RESTING COMFORTABLY. PT UROSTOMY HAS BEEN DRAINING VERY WELL. PT BREATHING EASY. PT DID NOT REQUIRE ANY PAIN MANAGEMENT. DRESSING IS COMPRESSED AND C/D/I. PT IS REPOSITIONING SELF THIS SHIFT. PT REPOSITIONED TOLERATED. NO TELE EVENTS REPORTED. CALL LIGHT IN REACH.
[2024-12-05 05:50] LABS: Magnesium, Blood 1.9 mg/dL (1.6-2.4)
[2024-12-05 05:56] LABS: Anion Gap 10.0 mmol/L (3-11); Blood Urea Nitrogen 20.0 mg/dL (8-24); CO2, Blood 23.0 mmol/L (21-32); Calcium, Blood 5.2 mg/dL (8.5-10.1); Chloride, Blood 107.0 mmol/L (98-108); Creatinine, Blood 1.15 mg/dL (0.60-1.20); Glucose, Blood 197.0 mg/dL (70-99); Phosphorus, Blood 2.0 mg/dL (2.5-4.9); Potassium, Blood 2.7 mmol/L (3.5-5.5); Sodium, Blood 137.0 mmol/L (136-145)
[2024-12-05] MEDS ORDERED: CALCIUM GLUC IN NACL, ISO-OSM 50 ML IV ONE (06:15)
[2024-12-05] MEDS ORDERED: Sodium Phosphate 20 MM in Dextrose 5% 500 ML IV STA (08:06)
[2024-12-05 09:00] VITALS: BP 118/74
--- NOTE | 2024-12-05 11:27 | NUR ---
TELE BOX RETURNED TO PCU.
[2024-12-05 16:06] VITALS: BP 112/81
--- NOTE | 2024-12-05 16:09 | NUR ---
SHIFT SUMMARY PT DOING WELL TODAY. DIET ADVANCED TO REGULAR AND PT TOLERATING WELL. REPORTS FLATUS AND HAD A BM TODAY. DENIES N/V. GAYE DRESSING REMOVED BY DR. PRICE AND JESSICA TO MIDLINE ABD ARE CDI. PT UP TO CHAIR FOR MOST OF THE DAY. IVF INFUSING PER ORDERS. IV NUTRITION DC'D. TELE DC'D. AT BEDSIDE FOR SUPPORT. USES CALL LIGHT APPROPRIATELY.
[2024-12-05 19:16] VITALS: BP 108/72
--- NOTE | 2024-12-06 04:53 | NUR ---
SHIFT SUMMARY AOX4. POD7-BOWEL RESECTION. PT DENIES ABD PAIN. MIDLINE W/JESSICA OPEN TO AIR, SM AMOUNT SEROSANGUINOUS DRAINAGE NOTED ON ATTENDS @BEGINNING OF SHIFT, MEDIPORE DRESSING PLACED TO PROTECT SURGICAL SITE. PT REPORTS +FLATUS. DENIES N/V, TOLERATING REG DIET. UROSTOMY TO RLQ ABD-APPLIANCE INTACT W/CLEAR YELLOW URINE. PT DENIES ANY NEEDS & STATED T/O NIGHT HE'S FELT "GREAT". PENDING AM LABS & POSSIBLE DC. CALL LIGHT IN REACH & PT ABLE TO MAKE NEEDS KNOWN.
[2024-12-06 05:20] VITALS: BP 115/76
[2024-12-06 05:28] LABS: Magnesium, Blood 2.1 mg/dL (1.6-2.4)
[2024-12-06 05:55] LABS: Anion Gap 9.0 mmol/L (3-11); Blood Urea Nitrogen 14.0 mg/dL (8-24); CO2, Blood 23.0 mmol/L (21-32); Calcium, Blood 5.6 mg/dL (8.5-10.1); Chloride, Blood 111.0 mmol/L (98-108); Creatinine, Blood 1.01 mg/dL (0.60-1.20); Glucose, Blood 121.0 mg/dL (70-99); Phosphorus, Blood 1.5 mg/dL (2.5-4.9); Potassium, Blood 2.9 mmol/L (3.5-5.5); Sodium, Blood 140.0 mmol/L (136-145)
[2024-12-06 07:08] VITALS: BP 103/72
[2024-12-06] MEDS ORDERED: Sodium Phosphate Mono/Dibasic 250 MG Tab PO SCH (08:00)
[2024-12-06] MEDS ORDERED: CALCIUM GLUC IN NACL, ISO-OSM 50 ML IV ONE (08:05)
[2024-12-06 14:53] VITALS: BP 96/64
--- NOTE | 2024-12-06 17:06 | NUR ---
SUMMARY NO ACUTE CHANGES T/O SHIFT. PT HAVING LOOSE BMS. TOLERATING REGULAR DIET. HAS DENIED PAIN OR N/V. DID REPORT "SLIGHT HEARTBURN", MEDICATED PER ORDERS W/TUMS. PT AMBULATES IN TO RESTROOM W/FWW AND GAIT BELT. SLIGHTLY UNSTEADY. SAT UP IN RECLINER FOR SEVERAL HOURS. NOW RESTING IN BED. CALL LIGHT IN REACH.
[2024-12-06 19:10] VITALS: BP 95/68
[2024-12-07 04:01] VITALS: BP 111/75
[2024-12-07 05:46] LABS: Hematocrit 26.3 % (37.0-53.0); Hemoglobin 8.2 g/dL (13.5-17.5); Mean Corpuscular HGB Conc 31.2 g/dL (31.5-36.5); Mean Corpuscular Volume 93 fL (80-100); NRBC ABSOLUTE 0.00 K/mm3 (0.00-0.02); NRBC Auto 0.0 /100 WBC (0.0-0.2); Platelet Count 413 K/mm3 (150-400); RDW Coefficient Variation 17.1 % (11.7-14.2); RDW Standard Deviation 57.3 fL (35.1-46.3)
--- NOTE | 2024-12-07 05:47 | NUR ---
DIGITAL FORENSIC EXAMINER SUMMARY NO ACUTE CHANGES THIS SHIFT. PT AAOX4 AND COOPERATIVE WITH CARE. ABLE TO MAKE NEEDS KNOWN. POD 8 FOR BOWEL RESECTION. MIDLINE ABD INCISION WITH MEDIPORE DRESSING INTACT, MINIMAL AMOUNT OF DRAINAGE NOTED. UROSTOMY TO RLQ DRAINING CLEAR YELLOW URINE INTO CATHETER BAG, GOOD URINE OUTPUT. PT REPORTED SOME CHRONIC NECK/ARM/LEG PAINS, MEDICATED WITH OXYCODONE WHICH IS WHAT PT TAKES AT BASELINE. PAIN CONTROLLED WITH OXYCODONE AND PT WAS ABLE TO SLEEP THROUGH MOST OF THE NIGHT. PT STILL PASSING FLATUS BUT HAS NOT HAD ANY ADDITIONAL BM'S THIS SHIFT. VSS, WCTM.
[2024-12-07 06:04] LABS: Magnesium, Blood 1.8 mg/dL (1.6-2.4)
[2024-12-07 06:26] LABS: Albumin, Blood 1.8 g/dL (3.4-5.0); Anion Gap 7 mmol/L (3-11); Blood Urea Nitrogen 13 mg/dL (8-24); CO2, Blood 23 mmol/L (21-32); Calcium, Blood 5.5 mg/dL (8.5-10.1); Chloride, Blood 114 mmol/L (98-108); Creatinine, Blood 0.84 mg/dL (0.60-1.20); Glucose, Blood 126 mg/dL (70-99); Phosphorus, Blood 2.4 mg/dL (2.5-4.9); Potassium, Blood 2.9 mmol/L (3.5-5.5); Sodium, Blood 141 mmol/L (136-145)
[2024-12-07 07:13] VITALS: BP 112/55
[2024-12-07] MEDS ORDERED: CALCIUM GLUC IN NACL, ISO-OSM 50 ML IV ONE (08:30)
[2024-12-07 14:32] VITALS: BP 105/67
--- NOTE | 2024-12-07 16:50 | NUR ---
SUMMARY NO ACUTE CHANGES T/O SHIFT. PT SAT UP IN CHAIR SECOND HALF OF SHIFT. TOLERATING DIET. HAD BM. UROSTOMY PUTTING OUT LIGHT YELLOW URINE, PT PLEASANT AND COOPERATIVE. CALL LIGHT IN REACH.
[2024-12-07 19:37] VITALS: BP 118/70
[2024-12-08 05:42] VITALS: BP 122/72
--- NOTE | 2024-12-08 05:52 | NUR ---
FLIGHT SOFTWARE TEST ENGINEER SUMMARY NO ACUTE CHANGES THIS SHIFT. PT AAOX4 AND CALLS APPROPRIATELY. TOLERATING DIET STILL AND PT HAD INCONTINENT BM THIS MORNING. ABD INCISION INTACT, DRESSING WITH SMALL AREA OF SHADOWING UNCHANGED THROUGH THE NIGHT. WAITING FOR MORNING LABS TO POPULATE TO ASSESS PT'S CALCIUM AND POTASSIUM. VSS, WCTM.
[2024-12-08 06:29] LABS: Hematocrit 29.0 % (37.0-53.0); Hemoglobin 9.0 g/dL (13.5-17.5); Mean Corpuscular HGB Conc 31.0 g/dL (31.5-36.5); Mean Corpuscular Volume 93 fL (80-100); NRBC ABSOLUTE 0.00 K/mm3 (0.00-0.02); NRBC Auto 0.0 /100 WBC (0.0-0.2); Platelet Count 487 K/mm3 (150-400); RDW Coefficient Variation 17.5 % (11.7-14.2); RDW Standard Deviation 58.4 fL (35.1-46.3)
[2024-12-08 06:56] LABS: Magnesium, Blood 1.8 mg/dL (1.6-2.4)
[2024-12-08 06:58] LABS: Albumin, Blood 2.0 g/dL (3.4-5.0); Anion Gap 9 mmol/L (3-11); Blood Urea Nitrogen 13 mg/dL (8-24); CO2, Blood 22 mmol/L (21-32); Calcium, Blood 5.5 mg/dL (8.5-10.1); Chloride, Blood 114 mmol/L (98-108); Creatinine, Blood 0.80 mg/dL (0.60-1.20); Glucose, Blood 73 mg/dL (70-99); Phosphorus, Blood 1.3 mg/dL (2.5-4.9); Potassium, Blood 3.1 mmol/L (3.5-5.5); Sodium, Blood 142 mmol/L (136-145)
[2024-12-08 07:32] VITALS: BP 126/73
[2024-12-08] MEDS ORDERED: Potassium Phosphate Dibasic 30 MM in Dextrose 5% 500 ML IV STA (08:16)
[2024-12-08 15:27] VITALS: BP 125/81
[2024-12-08 19:33] VITALS: BP 126/77
--- NOTE | 2024-12-08 19:33 | NUR ---
SHIFT SUMMARY PT A&OX4. PT ADMITTED DUE TO RESP FAILURE. PT VSS. PT REPORTS NO PAIM. PT IS SBA W FWW AND GB TO TOILET. PT CONT OF STOOL. PT HAVING LOOSE STOOLS. PT HAS UROSTOMY, BAG CHANGED TODAY. URINE DRAINING ADEQUATE IN BAG. URINE HAS GOOD OUTPUT. PT HAD CRITICAL LAB TODAY. PT GOT CALCIUM GLUCONATE IV AND POTASSIUM POSPHATE IV. PT ALSO GOT POTASSIUM ELIXER TODAY PO. PT SITS UPRIGHT 90 DEGREES FOR MEALS. ORAL CARE COMPLETE. PT ACHS. PT ON REGULAR TEXTURED DIET. INCENTIVE SPIROMETER AT BEDSIDE. PT REPORTING WANTING SOMETHING FOR GAS RELIEF, DR. LOVE ORDERED GAS X. REPORTED TO NIGHT RN PT NEEDS NEW DRESSING ON POWERGLLIDE, ADHESIVE LIFTING. PT IN BED, BED IN LOWEST POSITION, CALL LIGHT IN REACH.
--- NOTE | 2024-12-09 04:10 | NUR ---
SHIFT SUMMARY NO ACUTE CHANGES T/O SHIFT. PT AOX4 AND ABLE TO MAKE NEEDS KNOWN. DRESSING TO MIDLINE CDI. UROSTOMY APPLIANCE CDI, YELLOW URINE NOTED IN BAG. IV AND EXT DWELL PATENT/SL. JOSE CARLOS PO INTAKE, DENIES N/V. REPORTS PASSING FLATUS AND BM DURING DAY. AWAITING MORNING LABS. PT CURRENTLY RESTING IN BED WITH EYES CLOSED, RESP EVEN/UNLABORED, AND CALL LIGHT IN REACH. WILL GIVE REPORT TO ONCOMING RN.
[2024-12-09 04:26] VITALS: BP 133/75
[2024-12-09 06:58] LABS: Magnesium, Blood 1.8 mg/dL (1.6-2.4)
[2024-12-09 07:02] LABS: Albumin, Blood 1.8 g/dL (3.4-5.0); Anion Gap 9 mmol/L (3-11); Blood Urea Nitrogen 13 mg/dL (8-24); CO2, Blood 20 mmol/L (21-32); Calcium, Blood 5.7 mg/dL (8.5-10.1); Chloride, Blood 116 mmol/L (98-108); Creatinine, Blood 0.80 mg/dL (0.60-1.20); Glucose, Blood 111 mg/dL (70-99); Phosphorus, Blood 1.7 mg/dL (2.5-4.9); Potassium, Blood 4.0 mmol/L (3.5-5.5); Sodium, Blood 141 mmol/L (136-145)
[2024-12-09 07:28] VITALS: BP 121/77
[2024-12-09] MEDS ORDERED: Potassium Phosphate Dibasic 30 MM in Dextrose 5% 500 ML IV STA (10:44)
[2024-12-09] MEDS ORDERED: Sodium Phosphate Mono/Dibasic 250 MG Tab PO SCH (15:00)
[2024-12-09 16:16] VITALS: BP 118/72
--- NOTE | 2024-12-09 18:53 | NUR ---
SHIFT SUMMARY PATIENT A/OX4, ABLE TO MAKE NEEDS KNOWN. PLEASANT AND COOPERATIVE WITH CARE. 1 PERSON ASSIST WITH AMBULATION. UROSTOMY DRESSING CHANGED MULTIPLE TIMES THIS SHIFT DUE TO LEAKING. CRITICAL CALCIUM THIS MORNING, CALCIUM GLUCONATE ADMINISTERED PER JUN. POTASSIUM PHOS ADMINISTERED PER JUN WELL. PATIENT PARTICIPATED IN PHYSICAL TEHRAPY THIS SHIFT. DENIES PAIN T/O SHIFT. MINIMAL ABDOMINAL INCISION JESSICA REMOVED AND STERISTRIPS APPLIED, NURSE TECH, PATIENT TOELRATED WELL. AT BEDSIDE THIS ADTERNOON AND UPDATED ON PATIENT STATUS. NO OTHER CONCERNS AT THIS TIME.
[2024-12-09 19:28] VITALS: BP 123/81
[2024-12-10 03:58] VITALS: BP 128/79
[2024-12-10 05:41] LABS: Albumin, Blood 1.9 g/dL (3.4-5.0); Anion Gap 8 mmol/L (3-11); Blood Urea Nitrogen 16 mg/dL (8-24); CO2, Blood 21 mmol/L (21-32); Calcium, Blood 6.0 mg/dL (8.5-10.1); Chloride, Blood 116 mmol/L (98-108); Creatinine, Blood 0.74 mg/dL (0.60-1.20); Glucose, Blood 135 mg/dL (70-99); Phosphorus, Blood 2.2 mg/dL (2.5-4.9); Potassium, Blood 4.0 mmol/L (3.5-5.5); Sodium, Blood 141 mmol/L (136-145)
--- NOTE | 2024-12-10 06:22 | NUR ---
SHIFT SUMMARY POD 11 S/P SB RESECTION. NO ACUTE CHANGES TONIGHT. PT IS A/OX4 WITH VSS. STERI STRIPS TO MIDLINE CDI. UROSTOMY PRODUCING YELLOW URINE. PT JOSE CARLOS PO INTAKE, DENIES N/V. EXTENDED DWELL PATENT/SL, DRESSING CDI. IV ALSO PATENT WITH DRESSING CDI. PT DENIED PAIN THROUGHOUT SHIFT. REPORTS SLEEPING BETTER TONIGHT. AWAITING MORNING LABS. PT CURRENTLY RESTING IN BED WITH EYES CLOSED, RESP EVEN/UNLABORED, WITH CALL LIGHT IN REACH. WILL GIVE REPORT TO ONCOMING RN.
[2024-12-10 07:05] VITALS: BP 125/74
[2024-12-10] MEDS ORDERED: Potassium Phosphate Dibasic 30 MM in Dextrose 5% 500 ML IV STA (09:35)
[2024-12-10 14:34] VITALS: BP 125/72
--- NOTE | 2024-12-10 17:21 | NUR ---
summary NO ACUTE CHANGES T/O SHIFT. PT SAT UP IN CHAIR FOR SECOND HALF SHIFT. NOW BACK TO BED. PT HAD LG BM THIS AFTERNOON. SPOUSE CHANGED UROSTOMY APPLIANCE THIS AFTERNOON. SPOUSE BEDSIDE. CALL LIGHT IN REACH. PT PLEASANT AND COOPERAITVE.
[2024-12-10 19:16] VITALS: BP 125/75
--- NOTE | 2024-12-11 04:11 | NUR ---
SHIFT SUMMARY NOC. PT S/P SMALL BOWEL RESECTION AND RESOLVED ACUTE RESPIRATORY FAILURE. PT A/O X4, MIDLINE INCISION IS C/D/I WITH STERI STRIPS. UROSTOMY PRODUCING CLEAR YELLOW URINE. TOLERATING DIET, DENIES N/V. PT DENIES PAIN THIS SHIFT AND DECLINED NEED FOR PAIN MEDICATION. PT ON RA WITH NO DESAT EVENTS. PT CALLS APPROPRIATELY, MAKES NEEDS KNOWN.
[2024-12-11 05:24] VITALS: BP 131/80
[2024-12-11 05:41] LABS: Albumin, Blood 1.9 g/dL (3.4-5.0); Anion Gap 11 mmol/L (3-11); Blood Urea Nitrogen 17 mg/dL (8-24); CO2, Blood 20 mmol/L (21-32); Calcium, Blood 6.2 mg/dL (8.5-10.1); Chloride, Blood 113 mmol/L (98-108); Creatinine, Blood 0.78 mg/dL (0.60-1.20); Glucose, Blood 120 mg/dL (70-99); Magnesium, Blood 1.5 mg/dL (1.6-2.4); Phosphorus, Blood 2.2 mg/dL (2.5-4.9); Potassium, Blood 4.0 mmol/L (3.5-5.5); Sodium, Blood 140 mmol/L (136-145)
[2024-12-11 07:16] VITALS: BP 120/80
[2024-12-11] MEDS ORDERED: Magnesium Sulf 2 GM/Water 50ML 50 ML IV ONE (08:40)
[2024-12-11] MEDS ORDERED: Potassium Phosphate Dibasic 30 MM in Dextrose 5% 500 ML IV SCH (10:00)
[2024-12-11 14:15] VITALS: BP 124/67
--- NOTE | 2024-12-11 16:54 | NUR ---
SHIFT SUMMARY NO ACUTE CHANGES TODAY. UP TO CHAIR FOR MOST OF DAY. PT DENIES PAIN. JOSE CARLOS REG DIET. PASSING FLATUS AND HAD X1 BM. LABS ORDERED FOR AM. CALL LIGHT WITHIN REACH.
[2024-12-11 19:05] VITALS: BP 114/93
[2024-12-12 00:21] VITALS: BP 124/77
[2024-12-12 04:09] VITALS: BP 126/80
[2024-12-12 05:10] LABS: 25-HYDROXYVITAMIN D2 D3 TOTAL 39.9 ng/mL (30.0-80.0)
[2024-12-12 05:13] LABS: Albumin, Blood 2.0 g/dL (3.4-5.0); Anion Gap 10 mmol/L (3-11); Blood Urea Nitrogen 20 mg/dL (8-24); CO2, Blood 21 mmol/L (21-32); Calcium, Blood 6.5 mg/dL (8.5-10.1); Chloride, Blood 112 mmol/L (98-108); Creatinine, Blood 0.76 mg/dL (0.60-1.20); Glucose, Blood 144 mg/dL (70-99); Magnesium, Blood 1.7 mg/dL (1.6-2.4); Phosphorus, Blood 2.1 mg/dL (2.5-4.9); Potassium, Blood 3.9 mmol/L (3.5-5.5); Sodium, Blood 139 mmol/L (136-145)
--- NOTE | 2024-12-12 06:15 | NUR ---
SHIFT SUMMARY NOC. PT S/P SMALL BOWEL RESECTION AND RESOLVED ACUTE RESP FAILURE. PT'S MIDLINE INCISION IS C/D/I WITH STERI STRIPS. PT DENIES PAIN, N/V, AND IS PASSING GAS. UROSTOMY PRODUCING CLEAR YELLOW URINE. PT ON RA. PT A/O X4 AND MAKES NEEDS KNOWN. CALL LIGHT IN REACH.
[2024-12-12 07:22] VITALS: BP 123/76
[2024-12-12] MEDS ORDERED: Potassium Phosphate Dibasic 30 MM in Dextrose 5% 500 ML IV STA (08:18)
--- NOTE | 2024-12-12 13:52 | NUR ---
REPORT TO KAEL AARON TO ASSUME CARE. PATIENT POD13 BOWEL RESECTION. MIDLINE WITH STERI STRIPS PHYSICAL THERAPY SUPERVISOR, C/D/I. PATIENT IS AOX4, SBA WITH FWW. ABLE TO AMBULATE TO BATHROOM AND CHAIR. POTASSIUM AND CALCIUM INFUSIONS TODAY. HOSPITALIST IN TO SEE PATIENT REPORTS IF LABS WNL, POSSIBLE DC HOME WITH H/H TOMORROW. SPOUSE IN ROOM AND PATIENT ABLE TO MAKE NEEDS KNOWN.
--- NOTE | 2024-12-12 14:41 | NUR ---
REPORT RECEIVED FROM AGNIESZKA RAPHAEL AND [facility]
--- NOTE | 2024-12-12 18:50 | NUR ---
NO ACUTE CHANGE SINCE RECEIVED REPORT, WILL PASS REPORT TO NOC RN
[2024-12-12 19:44] VITALS: BP 125/78
[2024-12-13 04:11] VITALS: BP 131/78
--- NOTE | 2024-12-13 05:15 | NUR ---
SHIFT SUMMARY POD 14 BOWEL RESECTION c SANIYA. NO ACUTE CHANGES OVERNIGHT. VSS. TOLERATING DIET, DENIES N/V. UROSTOMY DRAINING YELLOW URINE TO GRAVITY. PASSING FLATUS & BM OVERNIGHT. MIDLINE ABD c STERI STRIPS - MILD REDNESS, OTHERWISE C/D/I. PT DENIES PAIN. AMBULATES USING FWW c SBA. CALL LIGHT IN REACH, BED IN LOWEST POSITION, WILL REPORT TO DAY RN.
[2024-12-13 05:53] LABS: Albumin, Blood 1.9 g/dL (3.4-5.0); Anion Gap 10 mmol/L (3-11); Blood Urea Nitrogen 19 mg/dL (8-24); CO2, Blood 21 mmol/L (21-32); Calcium, Blood 6.7 mg/dL (8.5-10.1); Chloride, Blood 114 mmol/L (98-108); Creatinine, Blood 0.73 mg/dL (0.60-1.20); Glucose, Blood 133 mg/dL (70-99); Phosphorus, Blood 2.3 mg/dL (2.5-4.9); Potassium, Blood 3.9 mmol/L (3.5-5.5); Sodium, Blood 141 mmol/L (136-145)
[2024-12-13 07:41] VITALS: BP 121/74
[2024-12-13] MEDS ORDERED: Potassium Phosphate Dibasic 30 MM in Dextrose 5% 500 ML IV STA (09:16)
[2024-12-13] MEDS ORDERED: Potassium Phosphate Dibasic 30 MM in Dextrose 5% 500 ML IV ONE (11:00)
[2024-12-13 15:54] VITALS: BP 139/80
--- NOTE | 2024-12-13 17:25 | NUR ---
SHIFT SUMMARY NO ACUTE CHANGES THIS SHIFT. PATIENT ALERT AND ORIENTED X4. COMMUNICATES NEEDS EFFECTIVELY. VSS. POD 14 SB RESECTION W/ SANIYA. DENIES ABD PAIN. TOLERATING ADVANCED DIET. PASSING FLATUS W/ BM TODAY. MIDLINE INCISION W/ STERI STRIPS - W/ MILD REDNESS, OTHERWISE C/D/I. UROSTOMY DRAINING YELLOW URINE. POTASSIUM PHOS AND CA GLUC INFUSED PER EMAR TODAY. AMBULATING W/ SBA FWW GB - UP IN CHAIR T/O AFTERNOON. AT BEDSIDE T/O DAY. CALL LIGHT IN REACH.
[2024-12-13 19:34] VITALS: BP 134/79
--- NOTE | 2024-12-14 03:40 | NUR ---
SHIFT SUMMARY POD 15 BOWEL RESECTION. NO ACUTE CHANGES THIS SHIFT. MIDLINE INCISION C/D/I. PT DENIES PAIN. A&O X4. PT COMMUNICATES NEEDS EFFECTIVELY. AMBULATES USING FWW WITH SBA. PLAN OF CARE ONGOING.
[2024-12-14 04:24] VITALS: BP 128/85
[2024-12-14 07:39] VITALS: BP 136/79
[2024-12-14] MEDS ORDERED: Mag Sulfate 1 GM/D5% 100ML 100 ML IV STA (08:37)
[2024-12-14 11:16] LABS: Anion Gap 9.0 mmol/L (3-11); Blood Urea Nitrogen 20.0 mg/dL (8-24); CO2, Blood 20.0 mmol/L (21-32); Calcium, Blood 7.3 mg/dL (8.5-10.1); Chloride, Blood 113.0 mmol/L (98-108); Creatinine, Blood 0.75 mg/dL (0.60-1.20); Glucose, Blood 212.0 mg/dL (70-99); Magnesium, Blood 1.6 mg/dL (1.6-2.4); Phosphorus, Blood 2.0 mg/dL (2.5-4.9); Potassium, Blood 4.2 mmol/L (3.5-5.5); Sodium, Blood 138.0 mmol/L (136-145)
[2024-12-14] MEDS ORDERED: Cholecalciferol 1000 Unit Tablet (=25MCG) PO SCH (13:00)
[2024-12-14 15:43] VITALS: BP 127/78
--- NOTE | 2024-12-14 18:36 | NUR ---
SHIFT SUMMARY PT ADMITTED FOR ACUTE RESP FAILURE. NO ACUTE CHANGES THIS SHIFT. A&O x4. POD 15 SB RESECTION. MIDLINE INCISION SITE C/D/I, STERI STRIPS IN PLACE. NO ABD TENDERNESS OR PAIN. TOLERATING REGULAR DIET & FLUIDS WELL. RLQ UROSTOMY DRAINING YELLOW URINE. ELECTROLYTES GIVEN TODAY PER EMAR, PLAN TO MONITOR LABS & HOPFULLY D/C HOME TOMORROW TO HOME HEALTH.
[2024-12-14 19:27] VITALS: BP 138/82
[2024-12-15 03:39] VITALS: BP 141/87
[2024-12-15 05:03] LABS: Albumin, Blood 1.9 g/dL (3.4-5.0); Anion Gap 10 mmol/L (3-11); Blood Urea Nitrogen 20 mg/dL (8-24); CO2, Blood 20 mmol/L (21-32); Calcium, Blood 7.1 mg/dL (8.5-10.1); Chloride, Blood 114 mmol/L (98-108); Creatinine, Blood 0.70 mg/dL (0.60-1.20); Glucose, Blood 184 mg/dL (70-99); Magnesium, Blood 1.6 mg/dL (1.6-2.4); Phosphorus, Blood 2.3 mg/dL (2.5-4.9); Potassium, Blood 3.7 mmol/L (3.5-5.5); Sodium, Blood 140 mmol/L (136-145)
--- NOTE | 2024-12-15 05:40 | NUR ---
SHIFT SUMMARY POD 16 BOWEL RESECTION. A&O X4. NO ACUTE CHANGES THIS SHIFT. MIDLINE INCISION C/D/I WITH STERI STRIPS LIFTING. PT DENIES ABDOMINAL PAIN. AMBULATES USING FWW WITH SBA. CARE PLAN ONGOING.
[2024-12-15 07:43] VITALS: BP 129/78
[2024-12-15] MEDS ORDERED: Potassium Phosphate Dibasic 30 MM in Dextrose 5% 500 ML IV STA (07:56)
[2024-12-15] MEDS ORDERED: MELATONIN5 M1 PO (09:40)
[2024-12-15] MEDS ORDERED: Calcium Carbon500 MG PO (09:40)
[2024-12-15] MEDS ORDERED: K-Phos Origina500 MG PO (09:41)
[2024-12-15] MEDS ORDERED: B-1100 M1 PO (09:42)
[2024-12-15 14:51] VITALS: BP 134/69
--- NOTE | 2024-12-15 15:07 | NUR ---
DISCHARGING IV INFUSIONS COMPLETED PER ORDERS. DC'D IVS, CATHETERS INTACT. REVIEWED DC INSTRUCTIONS W/PT & SPOUSE; VERBALIZED UNDERSTANDING. VSS. SPOUSE HELPING PT GET DRESSED. AWAITING SON'S ARRIVAL FOR RIDE.
--- NOTE | 2024-12-15 16:02 | NUR ---
discharged pt left unit in wc w/possessions an dc paperwork in hand, accompanied by spouse to ride outside.
== END 2024-12-15 15:25 | disposition home health service (06) | DRG 853 ==
LOC: ER 11:45 → MEDS 15:22 → SURS 15:22 → ICUE 15:22 → PCU 15:22 → MEDS 11-24 19:05 → SURS 11-29 13:04 → ICUE 11-29 15:23 → SURS 11-30 18:15
PROVIDERS: Internal Medicine; Student in an Organized Health Care Education/Training Program; Surgery; ADMIT Family Medicine
PROC: 0T9B70Z Drainage of Bladder with Drainage Device, Via Natural or Artificial Opening (ICD-10-PCS; principal; 2024-11-23)
PROC: 3E03329 Introduction of Other Anti-infective into Peripheral Vein, Percutaneous Approach (ICD-10-PCS; 2024-11-23)
PROC: 5A09457 Assistance with Respiratory Ventilation, 24-96 Consecutive Hours, Continuous Positive Airway Pressure (ICD-10-PCS; 2024-11-23)
PROC: 0D9670Z Drainage of Stomach with Drainage Device, Via Natural or Artificial Opening (ICD-10-PCS; 2024-11-25)
PROC: 0DB80ZZ Excision of Small Intestine, Open Approach (ICD-10-PCS; 2024-11-29)
PROC: 0DN80ZZ Release Small Intestine, Open Approach (ICD-10-PCS; 2024-11-29)
DX: A41.9 Sepsis, unspecified organism (principal); J18.9 Pneumonia, unspecified organism; J96.01 Acute respiratory failure with hypoxia; J96.02 Acute respiratory failure with hypercapnia; J69.0 Pneumonitis due to inhalation of food and vomit; C78.7 Secondary malignant neoplasm of liver and intrahepatic bile duct; E87.1 Hypo-osmolality and hyponatremia; E87.20 Acidosis, unspecified; N17.9 Acute kidney failure, unspecified; C18.9 Malignant neoplasm of colon, unspecified; E87.0 Hyperosmolality and hypernatremia; K56.51 Intestinal adhesions [bands], with partial obstruction; E83.51 Hypocalcemia; E83.39 Other disorders of phosphorus metabolism; E88.09 Other disorders of plasma-protein metabolism, not elsewhere classified; D72.819 Decreased white blood cell count, unspecified; D72.810 Lymphocytopenia; D64.9 Anemia, unspecified; R65.20 Severe sepsis without septic shock; C61 Malignant neoplasm of prostate; C67.9 Malignant neoplasm of bladder, unspecified; I25.10 Atherosclerotic heart disease of native coronary artery without angina pectoris; I10 Essential (primary) hypertension; E87.6 Hypokalemia; R94.31 Abnormal electrocardiogram [ECG] [EKG]; R54 Age-related physical debility; E11.9 Type 2 diabetes mellitus without complications; Z79.52 Long term (current) use of systemic steroids; Z79.84 Long term (current) use of oral hypoglycemic drugs; Z79.899 Other long term (current) drug therapy; Z79.891 Long term (current) use of opiate analgesic; Z90.79 Acquired absence of other genital organ(s); Z90.89 Acquired absence of other organs; Z98.890 Other specified postprocedural states; Z91.041 Radiographic dye allergy status; Z98.1 Arthrodesis status; Z96.652 Presence of left artificial knee joint; Z87.891 Personal history of nicotine dependence; Z82.49 Family history of ischemic heart disease and other diseases of the circulatory system; Z80.3 Family history of malignant neoplasm of breast
CPT/HCPCS: 0202U; 0528U; 36415; 71045; 71260; 74176; 74177; 74250; 80048; 80053; 80069; 80202; 82140; 82248; 82306; 82330; 82565; 82803; 82947; 83605; 83735; 83880; 83970; 84100; 84132; 84145; 84295; 85025; 85027; 85610; 85730; 87040; 87070; 87205; 88307; 92610; 93005; 93010; 94660; 94664; 94760; 94762; 96365-59; 96366; 96367; 96375; 97110; 97116; 97162; 97530; 99285-25; A9270; C1751; J0330; J0612; J0780; J1171; J1200; J1650; J1815; J1885; J1938; J2270; J2371; J2405; J2543; J2704; J2795; J2919; J3010; J3373; J3411; J3475; J3480; J7030; J7040; J7050; J7060; J7070; J7120; J7512; P9045; Q9967

== ENCOUNTER 2024-12-24 11:40 | Inpatient (IN) | payer MEDICARE, OTHER ==
[~2024-12-24] VITALS: Ht 177.8 cm; Wt 88.6 kg
[~2024-12-24 11:40] MED LIST changes: +B-1100 M1 PO; +K-Phos Origina500 MG PO; +MEDROL PO; +MELATONIN5 M1 PO
[2024-12-24 12:35] LABS: BASOPHILS ABSOLUTE AUTO 0.02 K/mm3 (0.00-0.23); BASOPHILS PERCENT AUTO 0 % (0-2); EOSINOPHILS ABSOLUTE AUTO 0.03 K/mm3 (0.00-0.68); EOSINOPHILS PERCENT AUTO 0 % (0-6); Hematocrit 27.8 % (37.0-53.0); Hemoglobin 8.8 g/dL (13.5-17.5); IMMATURE GRAN ABSOLUTE AUTO 0.05 K/mm3 (0.00-0.10); IMMATURE GRAN PERCENT AUTO 1 % (0-1); LYMPHOCYTES ABSOLUTE AUTO 0.92 K/mm3 (0.84-5.20); LYMPHOCYTES PERCENT AUTO 9 % (21-46); MONOCYTES ABSOLUTE AUTO 0.55 K/mm3 (0.16-1.47); MONOCYTES PERCENT AUTO 5 % (4-13); Mean Corpuscular HGB Conc 31.7 g/dL (31.5-36.5); Mean Corpuscular Volume 92 fL (80-100); NEUTROPHILS ABSOLUTE AUTO 8.69 K/mm3 (1.96-9.15); NEUTROPHILS PERCENT AUTO 85 % (41-73); NRBC ABSOLUTE 0.00 K/mm3 (0.00-0.02); NRBC Auto 0.0 /100 WBC (0.0-0.2); Platelet Count 189 K/mm3 (150-400); RDW Coefficient Variation 17.0 % (11.7-14.2); RDW Standard Deviation 57.1 fL (35.1-46.3)
[2024-12-24 13:01] LABS: Alanine Aminotransfer (ALT/SGP 18.0 U/L (12-78); Albumin, Blood 2.1 g/dL (3.4-5.0); Albumin/Globulin Ratio 0.6 (0.8-1.8); Anion Gap 13.0 mmol/L (3-11); Aspartate Aminotrans (AST/SGOT 25.0 U/L (12-37); Bilirubin, Total 0.3 mg/dL (0.1-1.0); Blood Urea Nitrogen 21.0 mg/dL (8-24); CO2, Blood 23.0 mmol/L (21-32); Calcium, Blood 7.4 mg/dL (8.5-10.1); Chloride, Blood 102.0 mmol/L (98-108); Creatinine, Blood 1.1 mg/dL (0.60-1.20); Globulin, Blood 3.7 g/dL (2.2-4.0); Glucose, Blood 185.0 mg/dL (70-99); Potassium, Blood 3.6 mmol/L (3.5-5.5); Sodium, Blood 134.0 mmol/L (136-145); Total Protein, Blood 5.8 g/dL (6.4-8.2)
[2024-12-24] MEDS ORDERED: NS 1,000 ML IV SCH (14:05)
[2024-12-24] MEDS ORDERED: Ampicillin Sod/Sulbactam Sod 3 GM in NS 100 ML IV ONE (14:05)
[2024-12-24] MEDS ORDERED: Piperacillin/Tazobactam Sod 4.5 GM in NS 100 ML IV ONE (16:10)
[2024-12-24] MEDS ORDERED: Vancomycin (Pharmacy Consult) IV SCH (17:00)
[2024-12-24 18:09] LABS: Ferritin, Serum 92.0 ng/mL (26-388); Total Iron Binding Capacity 215.0 ug/dL (250-450)
[2024-12-24 18:45] VITALS: BP 97/54
[2024-12-24 20:31] VITALS: BP 92/58
[2024-12-24] MEDS ORDERED: Piperacillin/Tazobactam Sod 4.5 GM in NS 100 ML IV SCH (21:00)
[2024-12-25 00:10] VITALS: BP 100/59
[2024-12-25 03:56] LABS: BASOPHILS ABSOLUTE AUTO 0.02 K/mm3 (0.00-0.23); BASOPHILS PERCENT AUTO 0 % (0-2); EOSINOPHILS ABSOLUTE AUTO 0.09 K/mm3 (0.00-0.68); EOSINOPHILS PERCENT AUTO 1 % (0-6); Hematocrit 24.6 % (37.0-53.0); Hemoglobin 7.7 g/dL (13.5-17.5); IMMATURE GRAN ABSOLUTE AUTO 0.03 K/mm3 (0.00-0.10); IMMATURE GRAN PERCENT AUTO 0 % (0-1); LYMPHOCYTES ABSOLUTE AUTO 0.76 K/mm3 (0.84-5.20); LYMPHOCYTES PERCENT AUTO 9 % (21-46); MONOCYTES ABSOLUTE AUTO 0.56 K/mm3 (0.16-1.47); MONOCYTES PERCENT AUTO 6 % (4-13); Mean Corpuscular HGB Conc 31.3 g/dL (31.5-36.5); Mean Corpuscular Volume 91 fL (80-100); NEUTROPHILS ABSOLUTE AUTO 7.30 K/mm3 (1.96-9.15); NEUTROPHILS PERCENT AUTO 83 % (41-73); NRBC ABSOLUTE 0.00 K/mm3 (0.00-0.02); NRBC Auto 0.0 /100 WBC (0.0-0.2); Platelet Count 183 K/mm3 (150-400); RDW Coefficient Variation 17.0 % (11.7-14.2); RDW Standard Deviation 57.0 fL (35.1-46.3)
[2024-12-25 05:06] VITALS: BP 111/56
[2024-12-25 06:06] LABS: Alanine Aminotransfer (ALT/SGP 12.0 U/L (12-78); Albumin, Blood 1.9 g/dL (3.4-5.0); Albumin/Globulin Ratio 0.5 (0.8-1.8); Anion Gap 9.0 mmol/L (3-11); Aspartate Aminotrans (AST/SGOT 28.0 U/L (12-37); Bilirubin, Total 0.3 mg/dL (0.1-1.0); Blood Urea Nitrogen 15.0 mg/dL (8-24); CO2, Blood 25.0 mmol/L (21-32); Calcium, Blood 7.1 mg/dL (8.5-10.1); Chloride, Blood 105.0 mmol/L (98-108); Creatinine, Blood 0.96 mg/dL (0.60-1.20); Globulin, Blood 3.5 g/dL (2.2-4.0); Glucose, Blood 188.0 mg/dL (70-99); Potassium, Blood 3.0 mmol/L (3.5-5.5); Sodium, Blood 136.0 mmol/L (136-145); Total Protein, Blood 5.4 g/dL (6.4-8.2)
[2024-12-25] MEDS ORDERED: MAGNESIUM GLYC120 M2 PO (06:18)
[2024-12-25] MEDS ORDERED: Potassium Chl 20MEQ/Water100ML 100 ML IV SCH (06:45)
[2024-12-25] MEDS ORDERED: Insulin Human Lispro 100 Units/ML 3ML Syringe SC SCH (07:30)
[2024-12-25] MEDS ORDERED: Enoxaparin 40 MG/0.4 ML SYR SC SCH (09:00)
[2024-12-25 12:57] VITALS: BP 125/58
--- NOTE | 2024-12-25 13:44 | NUR ---
Lisa Roth . Pt is using the flutter valve today.
--- NOTE | 2024-12-25 14:20 | NUR ---
Assisted from B[facility] back to bed after having BM. BM was brown, soft, med size. Pt weaned from 4 l/min O2 to 2 l/min.
[2024-12-25] MEDS ORDERED: Ondansetron HCl 2 MG / ML 2ML Vial IV PRN (17:35)
--- NOTE | 2024-12-25 17:45 | NUR ---
PT medicated for nausea, near emesis. holding medrol until pt's nausea abates.
--- NOTE | 2024-12-25 18:40 | NUR ---
Pt states his nausea is gone, but says that he still feels like he has heartburn. States he has "a long history of heart burn".
--- NOTE | 2024-12-25 19:21 | NUR ---
ASSUMPTION OF CARE ASSUMED PT'S CARE AT 1900,BEDSIDE REPORT COMPLETED.PT WIDE AWAKE,RESTING IN BED WATCHING TV.PLAN OF CARE REVIEWED,PT DENIES PAIN,DENIES NAUSEA,DENIES SOB,DENIES NEEDS AT THIS TIME.CALL LIGHT AND PT'S ITEMS WITHIN REACH.MONITORING ONGOING PER CAREPLAN.
[2024-12-25 20:19] VITALS: BP 115/68
[2024-12-25 23:42] VITALS: BP 104/67
[2024-12-26 04:12] VITALS: BP 104/58
[2024-12-26 04:21] LABS: BASOPHILS ABSOLUTE AUTO 0.02 K/mm3 (0.00-0.23); BASOPHILS PERCENT AUTO 0 % (0-2); EOSINOPHILS ABSOLUTE AUTO 0.02 K/mm3 (0.00-0.68); EOSINOPHILS PERCENT AUTO 0 % (0-6); Hematocrit 25.3 % (37.0-53.0); Hemoglobin 7.9 g/dL (13.5-17.5); IMMATURE GRAN ABSOLUTE AUTO 0.03 K/mm3 (0.00-0.10); IMMATURE GRAN PERCENT AUTO 0 % (0-1); LYMPHOCYTES ABSOLUTE AUTO 0.73 K/mm3 (0.84-5.20); LYMPHOCYTES PERCENT AUTO 10 % (21-46); MONOCYTES ABSOLUTE AUTO 0.59 K/mm3 (0.16-1.47); MONOCYTES PERCENT AUTO 8 % (4-13); Mean Corpuscular HGB Conc 31.2 g/dL (31.5-36.5); Mean Corpuscular Volume 91 fL (80-100); NEUTROPHILS ABSOLUTE AUTO 5.75 K/mm3 (1.96-9.15); NEUTROPHILS PERCENT AUTO 81 % (41-73); NRBC ABSOLUTE 0.00 K/mm3 (0.00-0.02); NRBC Auto 0.0 /100 WBC (0.0-0.2); Platelet Count 178 K/mm3 (150-400); RDW Coefficient Variation 16.6 % (11.7-14.2); RDW Standard Deviation 55.4 fL (35.1-46.3)
[2024-12-26 04:43] LABS: Anion Gap 9 mmol/L (3-11); Blood Urea Nitrogen 12 mg/dL (8-24); CO2, Blood 23 mmol/L (21-32); Calcium, Blood 6.8 mg/dL (8.5-10.1); Chloride, Blood 108 mmol/L (98-108); Creatinine, Blood 0.80 mg/dL (0.60-1.20); Glucose, Blood 175 mg/dL (70-99); Potassium, Blood 3.5 mmol/L (3.5-5.5); Sodium, Blood 136 mmol/L (136-145); Vancomycin, Trough 13.6 ug/mL (5.0-10.0)
--- NOTE | 2024-12-26 06:11 | NUR ---
PT MONITORED DURING THE SHIFT.OXYGEN FLOWRATE INCREASED FROM 2.5L TO 3L DUE TO OXYGEN SATURATION OCCASIONALLY DROPPING DOWN INTO THE 80'S WHILE PT SOUND ASLEEP AND SNORING.PT C/O HEARTBURN,RESIDENT NOTIFIED.ONE TIME ORDER ONETIME CALCIUM CARBONATE 1 TAB AND PEPCID GIVEN.PT COMPLAINED OF INCREASED HEARTBURN WHILE LYING IN BED WITH HOB SLIGHTLY ELEVATED.PT ENCOURAGED TO KEEP HOB ELEVATED HIGHER WHILE SLEEPING.PT REPORTS HEARTBURN IMPROVEMENT LYING IN BED WITH HOB ELEVATED.PT HAD 3 LOOSE BMS DURING THE SHIFT.PT SLEEPING AT THIS TIME EASILY AROUSABLE.SPOUSE AT THE BEDSIDE.PT DENIES PAIN,DENIES SOB,DENIES NEEDS.CALL LIGHT AND PT'S ITEMS WITHIN REACH.MONITORING ONGOING PER CAREPLAN.
[2024-12-26 08:00] VITALS: BP 109/63
[2024-12-26] MEDS ORDERED: ABIRATERONE PO SCH (09:00)
[2024-12-26 12:03] VITALS: BP 108/64
--- NOTE | 2024-12-26 16:00 | NUR ---
PT TRANSFERRED FORM PCU 18 TO RM 363. NO ACUTE CHANEG FOR THE SHIFT, BLOOD PRESSURE HAS BEEN STABLE SBP >100'S, NO TELE CHANGES TRANSITIONED TO NO TELE. PT TITRATED TO 1L ABLE TO TOLERATE SATS KEPT ABOVE 90%, PT DESATS TO 88 WHEN ASLEEP ADDRESSED PT IS BEING EVALUATED FOR SLEEP APNEA OUTPT. PT HAS BEEN COMPLIANT WITH FLUTTER VALVE. HAS NOT COUGH UP ANYTHING FOR THE SHIFT. PT REPORTED NOMAL BM'S, ASSISTED TO THE BATHROOM VIA FWW. HAS BEEN AT THE BEDSIDE T/O SHIFT, PLAN TO DC PT AFTER 2 DAYS OF THERAPY. ALL BELONGINGS SENT WTIH THE PT. TRANSFERRED VIA WHEELCHAIR, REPORT GIVEN TO JAYCOB AARON
[2024-12-26 16:10] VITALS: BP 130/76
--- NOTE | 2024-12-26 16:12 | NUR ---
PATIENT ARRIVED FROM PCU TO ROOM 363 VIA WHEEL CHAIR. IV ANTIBIOTICS INFUSING. PATIENT TRANSFERRED WITH STANDBY ASSIST WITHOUT DIFFICULTY TO BED. O2 VIA NASAL CANNULA. AO X 4. HAND OFF TO July RN AFTER SHE RETURNS FROM SCHEDULED BREAK.
--- NOTE | 2024-12-26 16:40 | NUR ---
TRANSFER FROM U-18. PT HOME MED BROUGHT FROM 2ND FLOOR AND PLACED IN PT DRAWER. CONTINUOUS PULSE OX PLACED AND PT WAS SATTING 98% ON 2L. WEANED TO ROOM AIR AND WILL MONITOR VIA PULSE OX PRIOR TO LEAVING ROOM PT WAS SATTTING AT 94% ON ROOM AIR. DENIES SHORTNESS OF BREATH. PENDING SPUTUM CULTURE. PT WORKING WITH FLUTTER VALVE. LOWER EXTREMITY EDEMA NOTED. UPPER EXTREMITY EDEMA NOTED. PT INFUSING IV ANTIBIOTICS RENALLY ADJUSTED TO INFUSE OVER 4 HOURS. A/OX4. ABLE TO MAKE NEEDS KNOWN. CALLING APPROPRIATELY. NONSKID SOCKS IN PLACE. PT REQUESTED TO HAVE THESE TAKEN OFF WHILE IN BED.
[2024-12-26] MEDS ORDERED: NS 250 ML IV PRN (17:30)
[2024-12-26 20:00] VITALS: BP 129/75
[2024-12-27] MEDS ORDERED: Piperacillin/Tazobactam Sod 4.5 GM in NS 100 ML IV SCH (03:00)
--- NOTE | 2024-12-27 04:01 | NUR ---
SHIFT SUMMARY ADMITTED FOR BILAT PNEUMONIA/CELLULITIS-SEPSIS. FULL CODE. IV ANTIB ARE SCHEDULED. ADA DIET, ACHS CBG'S -LOW SS. ON RA, A&O X4. 1 ASSIST W/FWW. HE HAS A UROSTOMY. BLE 2+ EDEMA. PAIN MEDICATION ORDERED THIS SHIFT FOR BLE PAIN. PLAN IS TO RETURN HOME W/HH WHEN STABLE.
[2024-12-27 04:58] VITALS: BP 140/82
[2024-12-27 05:11] LABS: BASOPHILS ABSOLUTE AUTO 0.02 K/mm3 (0.00-0.23); BASOPHILS PERCENT AUTO 0 % (0-2); EOSINOPHILS ABSOLUTE AUTO 0.08 K/mm3 (0.00-0.68); EOSINOPHILS PERCENT AUTO 1 % (0-6); Hematocrit 25.0 % (37.0-53.0); Hemoglobin 7.8 g/dL (13.5-17.5); IMMATURE GRAN ABSOLUTE AUTO 0.03 K/mm3 (0.00-0.10); IMMATURE GRAN PERCENT AUTO 1 % (0-1); LYMPHOCYTES ABSOLUTE AUTO 1.15 K/mm3 (0.84-5.20); LYMPHOCYTES PERCENT AUTO 18 % (21-46); MONOCYTES ABSOLUTE AUTO 0.46 K/mm3 (0.16-1.47); MONOCYTES PERCENT AUTO 7 % (4-13); Mean Corpuscular HGB Conc 31.2 g/dL (31.5-36.5); Mean Corpuscular Volume 91 fL (80-100); NEUTROPHILS ABSOLUTE AUTO 4.59 K/mm3 (1.96-9.15); NEUTROPHILS PERCENT AUTO 72 % (41-73); NRBC ABSOLUTE 0.00 K/mm3 (0.00-0.02); NRBC Auto 0.0 /100 WBC (0.0-0.2); Platelet Count 202 K/mm3 (150-400); RDW Coefficient Variation 16.7 % (11.7-14.2); RDW Standard Deviation 55.9 fL (35.1-46.3)
[2024-12-27 05:40] LABS: Anion Gap 8.0 mmol/L (3-11); Blood Urea Nitrogen 10.0 mg/dL (8-24); CO2, Blood 24.0 mmol/L (21-32); Calcium, Blood 6.6 mg/dL (8.5-10.1); Chloride, Blood 109.0 mmol/L (98-108); Creatinine, Blood 0.87 mg/dL (0.60-1.20); Glucose, Blood 178.0 mg/dL (70-99); Potassium, Blood 3.3 mmol/L (3.5-5.5); Sodium, Blood 138.0 mmol/L (136-145)
[2024-12-27 07:14] VITALS: BP 121/83
[2024-12-27 15:53] VITALS: BP 131/88
[2024-12-27 16:19] LABS: Vancomycin, Trough 16.6 ug/mL (5.0-10.0)
[2024-12-27] MEDS ORDERED: Polyethylene Glycol 3350 17 gm PO ONE (18:00)
[2024-12-27] MEDS ORDERED: Polyethylene Glycol 3350 17 gm PO PRN (18:00)
--- NOTE | 2024-12-27 18:36 | NUR ---
SHIFT SUMMARY PT A&OX4, PLEASANT AND COOPERATIVE WITH CARE. AT BEDSIDE MAJORITY OF SHIFT ASSISTING IN CARES. PT DID NOT COMPLAIN OF PAIN. PT CONCERNED WITH NOT HAVING A BM TODAY, ORDER PLACED FOR MIRALAX, ONE DOSE GIVEN THIS EVENING. NON-TELE, CONTINUOUS PULSE OX IN PLACE SATTING> 90% ON ROOM AIR. 1PA TO BATHROOM WITH FWW. CALL LIGHT IN REACH.
[2024-12-27 19:16] VITALS: BP 137/78
--- NOTE | 2024-12-28 04:12 | NUR ---
SHIFT SUMMARY: PT AOX4. PT HAS A URIOSTOMY THAT IS DRAINING WELL. PT MEDICATED PER EMAR. NO ACUTE CHANGES.
[2024-12-28 04:38] VITALS: BP 126/76
[2024-12-28 05:04] LABS: BASOPHILS ABSOLUTE AUTO 0.03 K/mm3 (0.00-0.23); BASOPHILS PERCENT AUTO 1 % (0-2); EOSINOPHILS ABSOLUTE AUTO 0.15 K/mm3 (0.00-0.68); EOSINOPHILS PERCENT AUTO 3 % (0-6); Hematocrit 24.6 % (37.0-53.0); Hemoglobin 7.8 g/dL (13.5-17.5); IMMATURE GRAN ABSOLUTE AUTO 0.02 K/mm3 (0.00-0.10); IMMATURE GRAN PERCENT AUTO 0 % (0-1); LYMPHOCYTES ABSOLUTE AUTO 1.34 K/mm3 (0.84-5.20); LYMPHOCYTES PERCENT AUTO 23 % (21-46); MONOCYTES ABSOLUTE AUTO 0.43 K/mm3 (0.16-1.47); MONOCYTES PERCENT AUTO 8 % (4-13); Mean Corpuscular HGB Conc 31.7 g/dL (31.5-36.5); Mean Corpuscular Volume 89 fL (80-100); NEUTROPHILS ABSOLUTE AUTO 3.78 K/mm3 (1.96-9.15); NEUTROPHILS PERCENT AUTO 66 % (41-73); NRBC ABSOLUTE 0.00 K/mm3 (0.00-0.02); NRBC Auto 0.0 /100 WBC (0.0-0.2); Platelet Count 257 K/mm3 (150-400); RDW Coefficient Variation 16.8 % (11.7-14.2); RDW Standard Deviation 55.0 fL (35.1-46.3)
[2024-12-28 05:26] LABS: Anion Gap 10.0 mmol/L (3-11); Blood Urea Nitrogen 8.0 mg/dL (8-24); CO2, Blood 21.0 mmol/L (21-32); Calcium, Blood 6.3 mg/dL (8.5-10.1); Chloride, Blood 112.0 mmol/L (98-108); Creatinine, Blood 0.83 mg/dL (0.60-1.20); Glucose, Blood 124.0 mg/dL (70-99); Potassium, Blood 3.3 mmol/L (3.5-5.5); Sodium, Blood 140.0 mmol/L (136-145)
[2024-12-28 08:00] VITALS: BP 139/96
[2024-12-28] MEDS ORDERED: Lactobacil 2-S.Thermo-Bifido 1 1 Cap PO SCH (11:00)
[2024-12-28] MEDS ORDERED: AMOCLA875 PO (14:13)
[2024-12-28] MEDS ORDERED: VISBIOME 112.51 EACH PO (14:14)
[2024-12-28] MEDS ORDERED: FERSU300 PO (14:14)
--- NOTE | 2024-12-28 15:15 | NUR ---
DISCHARGE PT DISCHARGED HOME WITH FAMILY. VENEER JOINTER HELPER BROUGHT PT TO VEHICLE WITH WHEELCHAIR. HOME MEDS RETURNED TO PT, EDUCATION PROVIDED.
== END 2024-12-28 14:57 | disposition home health service (06) | DRG 871 ==
LOC: ER 11:40 → ERHOLD 15:28 → PCU 15:28 → MEDS 12-26 16:13 → ENPENDDIS 12-28 12:44 → MEDS 12-28 14:57
PROVIDERS: Emergency Medicine; ADMIT Internal Medicine
DX: A41.9 Sepsis, unspecified organism (principal); J18.9 Pneumonia, unspecified organism; J96.01 Acute respiratory failure with hypoxia; E87.21 Acute metabolic acidosis; C78.89 Secondary malignant neoplasm of other digestive organs; L03.115 Cellulitis of right lower limb; R65.20 Severe sepsis without septic shock; E87.6 Hypokalemia; E86.0 Dehydration; D63.0 Anemia in neoplastic disease; D63.8 Anemia in other chronic diseases classified elsewhere; C61 Malignant neoplasm of prostate; I27.20 Pulmonary hypertension, unspecified; R13.10 Dysphagia, unspecified; Z96.652 Presence of left artificial knee joint; Z85.51 Personal history of malignant neoplasm of bladder; Z90.79 Acquired absence of other genital organ(s); Z98.890 Other specified postprocedural states; Z90.89 Acquired absence of other organs; Z91.041 Radiographic dye allergy status; Z79.899 Other long term (current) drug therapy; Z79.84 Long term (current) use of oral hypoglycemic drugs
CPT/HCPCS: 36415; 71045; 80048; 80053; 80202; 82728; 82947; 83036; 83540; 83550; 83605; 83880; 84145; 85025; 87040; 92610; 93005; 93010; 93971; 94762; 96365; 97110; 97112; 97116; 97162; 97165; 97535; 99285-25; A9270; J0295; J1650; J2405; J2543; J3373; J3480; J7030; J7040; J7050; J7120; J7509

== ENCOUNTER 2025-04-06 11:39 | Emergency (ER) | payer MEDICARE, OTHER ==
[~2025-04-06] VITALS: Ht 177.8 cm; Wt 85.7 kg
[~2025-04-06 11:39] MED LIST changes: +AMOCLA875 PO; +FERSU300 PO; +MAGNESIUM GLYC120 M2 PO; +VISBIOME 112.51 EACH PO
[2025-04-06] MEDS ORDERED: Mag Sulfate 1 GM/D5% 100ML 100 ML IV ONE (13:55)
[2025-04-06] MEDS ORDERED: Potassium Chl 20MEQ/Water100ML 100 ML IV ONE (13:55)
[2025-04-06 17:45] VITALS: BP 106/69
== END 2025-04-06 18:02 | disposition home or self-care (01) ==
LOC: ER 11:39
DX: E87.6 Hypokalemia (principal); E83.42 Hypomagnesemia; Z88.8 Allergy status to other drugs, medicaments and biological substances; Z79.899 Other long term (current) drug therapy
CPT/HCPCS: 82330; 83735; 93005; 93010; A9270; J3475; J3480